=== PATIENT | male | born 1965 | race Caucasian/White ===

== ENCOUNTER 2021-01-06 18:05 | Observation (INO) ==
[2021-01-06] MEDS ORDERED: MoRPHine SULFATE 4 MG/ML 1 ML CARP\\VIAL IV STA ×2 (18:16→19:41)
[2021-01-06] MEDS ORDERED: ASPIRIN CHEW 324 MG PO STA (18:16)
[2021-01-06] MEDS ORDERED: SODIUM CHLORIDE 0.9% 500 ML IV STA (18:16)
--- NOTE | 2021-01-06 18:19 | Emergency Department Note ---
Impression & Plan Left-sided chest pain, HTN (hypertension) ED Provider Note Provider: Ricki Phipps MD DATE OF SERVICE: 01/06/2021 CHIEF COMPLAINT: Left-sided chest pain HISTORY OF PRESENT ILLNESS: Patient is a 55-year-old gentleman presenting today reporting significant left-sided chest pain with radiation to the left shoulder and left upper arm beginning yesterday. Significantly worsened this afternoon /evening and thus presents here for evaluation. States occasionally little bit short of breath. Patient reports a history of smoking. Patient denies any significant leg swelling. Patient denies any nausea vomiting or abdominal discomfort. Patient denies any right-sided pain. Patient has pain into his back. Patient states he does take a baby aspirin every day. States the pain worsened was at [employer] this afternoon and almost made him pass out and thus he presents here for further evaluation. Denies any pain down into the left hand. Patient is the pain is predominantly in the left shoulder now in the left upper chest. Patient states it does not hurt much to move or push on these areas. Patient denies a history of similar. REVIEW OF SYSTEMS: A total of 10 review of systems was obtained and negative except as stated above in the HPI. 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 NECK: Trachea midline. Supple. ENT: Mucous membranes pink and moist. LUNGS: Airway patent. No retractions. Breath sounds clear with good air entry bilaterally. HEART: Regular rate and rhythm. No chest wall tenderness ABDOMEN: Soft and non-tender, without guarding or rebound. SKIN: Acyanotic, warm, dry, without rashes EXTREMITIES: Without swelling, tenderness or deformity NEUROLOGICAL: No focal deficits. No aphasia. No facial droop or slurred speech. Ambulatory. EK bpm normal sinus rhythm. No PVC or PAC. No acute ST segment elevation or depression. aVL T wave inversion noted in comparison to previous from April 21 of this past year with slightly more prominent aVL T wave inversion today. CONTINUOUS CARDIAC MONITORING: was ordered and showed a heart rate of 70-90s bpm in normal sinus rhythm Patient's laboratory studies and imaging reviewed. Differential includes Cardiac ischemia, aortic dissection, pulmonary embolism, pneumothorax, pneumonia, pericarditis, myocarditis, esophageal rupture, GERD, cholecystitis, pancreatitis, musculoskeletal, as well as other pathologies. IMPRESSION/MEDICAL DECISION MAKING: Patient reports significant left-sided chest pain started yesterday worsening significantly today. Was little shortness of breath but not significantly hypoxic or tachycardic. Is hypertensive here and is a history of smoking. EKG completed does not appear significantly altered from previous. Given some additional aspirin for full dose today as well as some morphine and nitroglycerin to see if this helped the symptoms. Chest x-ray is obtained. Basic labs were obtained including troponin. Patient does not have stigmata of significant heart failure. There is no clinical evidence of DVT on exam of the lower limbs. Given his history of smoking age and hypertension discussed with him proceed with CT of the chest to exclude acute dissection. Patient had no significant improvement of his pain initially after aspirin, nitro, and morphine. Patient's later arrives and reports that the patient's 50-year-old brother recently of an [place]. She also reports that the patient distantly about 7 years ago or so had a myocardial infarction although did not receive stents. Again has been on aspirin. Patient does not have reproducible chest wall tenderness. Troponin here is undetectable. No evidence of acute hepatitis or pancreatitis based on laboratory studies. Bilirubin not elevated. CT the chest per radiology without evidence of acute PE or dissection. Did make the patient aware of the findings of 2 small pulmonary nodules in the left lung can be followed up by his primary doctor (both patient and his acknowledged these and will follow with his primary doctor regarding them). Patient's presentation does not seem consistent with acute myocarditis or pericarditis. Patient is chronically on hydrocodone at home. Patient's heart score given his age, history reported of myocardial infarction, and the significant left-sided pain nonreproducible on exam do believe this represents a moderate risk. Discussed with him and his at bedside these findings. Blood pressures also been elevated today. Again concerning history with his brothers young age of heart disease although he does have associated history of diabetes this patient does not. Discussed with the patient and /family at bedside recommendation for further observation here in the hospital given his pain symptoms. Patient was agreeable with the plan to stay for further care. Given additional dose of morphine for pain control. The hospitalist be contacted for further evaluation. Screening Covid test was ordered. DIAGNOSIS: Left-sided chest pain, hypertension DISPOSITION: Hospitalist will evaluate Patient was agreeable with this plan. Past Med/Surg History Social History Smoking Status: Current some day smoker Feels Safe at Home: Yes Allergies Allergies Allergy/AdvReac Type Severity Reaction Status Date / Time ketorolac [From Toradol] AdvReac Migraine Verified 04/21/20 21:26 Results & Data (ED) Vital Signs Vital Signs - 24 hr 01/06/21 18:07 01/06/21 18:30 01/06/21 19:15 Temperature 37.2 C Temperature Source Temporal Artery Scan Pulse Rate 88 94 H 84 Pulse Rate from SpO2 Sensor 95 H 85 Respiratory Rate 20 30 H 19 Respiratory Effort / Characteristics Non-Labored Spontaneous Respiratory Depth Normal Respiratory Pattern Regular Blood Pressure 164/100 H 157/91 H Blood Pressure Mean 121 113 Pulse Oximetry 97 92 94 Oxygen Delivery Method Room Air Sepsis Recent Fever Within 48 Hours No Sepsis New/Unexplained Change in Mental Status No Sepsis Action Taken by Nursing No Action Required Laboratory Data Result diagrams: 01/06/21 18:20 01/06/21 18:20 Lab Results 01/06/21 01/06/21 01/06/21 Range/Units 18:20 18:20 18:20 WBC 8.05 (4.8-10.8) K/uL RBC 4.38 L (4.7-6.1) M/uL Hgb 14.1 (14.0-18.0) g/dL POC Hgb (14.0-18.0) g/dl Hct 41.5 L (42-52) % POC Hct (42-52) % MCV 94.7 (80-100) fL MCH 32.2 (25-34) pg MCHC 34.0 (32-36) g/dL RDW Std Deviation 45.4 (36.4-46.3) fL RDW Coeff of Christy 13.1 (11.5-14.5) % Plt Count 311 (130-400) K/uL MPV 9.7 (7.4-10.4) fL Immature Gran % (Auto) 0.2 % Neut % (Auto) 59.6 % Lymph % (Auto) 31.8 % [place] % (Auto) 6.6 % Eos % (Auto) 1.6 % Baso % (Auto) 0.2 % Neut # (Auto) 4.79 (1.4-6.5) K/uL Lymph # (Auto) 2.56 (1.2-3.4) K/uL [place] # (Auto) 0.53 (0.11-0.59) K/uL Eos # (Auto) 0.13 (0-0.5) K/uL Baso # (Auto) 0.02 (0-0.2) K/uL Immature Gran # (Auto) 0.02 (0.00-0.02) K/uL PT 9.9 (9.0-12.0) Seconds INR 1.0 (0.9-1.1) APTT 26.8 (21.0-31.0) Seconds PTT Ratio 1.0 POC Sodium (135-144) mmol/L Sodium 139 (136-145) mmol/L POC Potassium (3.3-5.0) mmol/L Potassium 4.0 (3.5-5.1) mmol/L POC Chloride (101-112) mmol/L Chloride 108 H (98-107) mmol/L Carbon Dioxide 27 (21-32) mmol/L POC Total CO2 (24-31) mmol/L Anion Gap 5.0 (3-11) POC Anion Gap (16-25) mmol/L POC BUN (7-18) mg/dl BUN 19 H (7-18) mg/dl Creatinine 0.96 (0.6-1.4) mg/dl POC Creatinine (0.6-1.3) mg/dl Est Cr Clr Drug Dosing 6.1 ml/min Est GFR ( Amer) 102.7 ml/min Est GFR (Non-Af Amer) 88.6 ml/min BUN/Creatinine Ratio 20.0 (10-20) Glucose 139 H (70-99) mg/dl POC Glucose (other) (70-99) mg/dl Calcium 9.1 (8.5-10.1) mg/dl POC Ioniz Calcium Genny (1.12-1.32) mmol/l Total Bilirubin 0.3 (0.2-1) mg/dl AST 18 (15-37) U/L ALT 29 (12-78) U/L Alkaline Phosphatase 93 (45-117) U/L Troponin I < 0.015 (0-0.045) ng/ml Total Protein 7.8 (6.4-8.2) gm/dl Albumin 3.9 (3.4-5.0) gm/dl Globulin 3.9 (2.5-4.0) gm/dl Albumin/Globulin Ratio 1.0 (0.9-2) Lipase 99 (73-393) U/L 01/06/21 Range/Units 18:26 WBC (4.8-10.8) K/uL RBC (4.7-6.1) M/uL Hgb (14.0-18.0) g/dL POC Hgb 14.3 (14.0-18.0) g/dl Hct (42-52) % POC Hct 42 (42-52) % MCV (80-100) fL MCH (25-34) pg MCHC (32-36) g/dL RDW Std Deviation (36.4-46.3) fL RDW Coeff of Christy (11.5-14.5) % Plt Count (130-400) K/uL MPV (7.4-10.4) fL Immature Gran % (Auto) % Neut % (Auto) % Lymph % (Auto) % [place] % (Auto) % Eos % (Auto) % Baso % (Auto) % Neut # (Auto) (1.4-6.5) K/uL Lymph # (Auto) (1.2-3.4) K/uL [place] # (Auto) (0.11-0.59) K/uL Eos # (Auto) (0-0.5) K/uL Baso # (Auto) (0-0.2) K/uL Immature Gran # (Auto) (0.00-0.02) K/uL PT (9.0-12.0) Seconds INR (0.9-1.1) APTT (21.0-31.0) Seconds PTT Ratio POC Sodium 141 (135-144) mmol/L Sodium (136-145) mmol/L POC Potassium 4.2 (3.3-5.0) mmol/L Potassium (3.5-5.1) mmol/L POC Chloride 104 (101-112) mmol/L Chloride (98-107) mmol/L Carbon Dioxide (21-32) mmol/L POC Total CO2 26 (24-31) mmol/L Anion Gap (3-11) POC Anion Gap 16.0 (16-25) mmol/L POC BUN 22 H (7-18) mg/dl BUN (7-18) mg/dl Creatinine (0.6-1.4) mg/dl POC Creatinine 0.9 (0.6-1.3) mg/dl Est Cr Clr Drug Dosing ml/min Est GFR ( Amer) ml/min Est GFR (Non-Af Amer) ml/min BUN/Creatinine Ratio (10-20) Glucose (70-99) mg/dl POC Glucose (other) 143 H (70-99) mg/dl Calcium (8.5-10.1) mg/dl POC Ioniz Calcium Genny 1.20 (1.12-1.32) mmol/l Total Bilirubin (0.2-1) mg/dl AST (15-37) U/L ALT (12-78) U/L Alkaline Phosphatase (45-117) U/L Troponin I (0-0.045) ng/ml Total Protein (6.4-8.2) gm/dl Albumin (3.4-5.0) gm/dl Globulin (2.5-4.0) gm/dl Albumin/Globulin Ratio (0.9-2) Lipase (73-393) U/L Administered Medications Nitroglycerin (Nitroglycerin Sl 0.4 Mg/Tab Tab) 0.4 mg SL UD PRN PRN Reason: Chest Pain Stop: 02/05/21 18:15 Last Admin: 01/06/21 18:33 Dose: 0.4 mg Documented by: [id number] Discontinued Medications Aspirin (Aspirin Chew 324 Mg) 243 mg PO NOW STA Stop: 01/06/21 18:17 Last Admin: 01/06/21 18:32 Dose: 243 mg Documented by: [id number] Sodium Chloride (Nss) 500 mls @ 999 mls/hr IV .Q31M STA Stop: 01/06/21 18:46 Last Infusion: 01/06/21 19:17 Dose: 0 mls/hr Documented by: [id number] Admin: 01/06/21 18:32 Dose: 999 mls/hr Documented by: [id number] Ioversol (Optiray 320 125ml) 120 ml IV ONCE ONE Stop: 01/06/21 19:05 Last Admin: 01/06/21 19:04 Dose: 120 ml Documented by: [id number] Morphine Sulfate (Morphine Sulfate 4 Mg/Ml 1 Ml Carp\Vial) 4 mg IV NOW STA Stop: 01/06/21 18:17 Last Admin: 01/06/21 18:32 Dose: 4 mg Documented by: [id number] Imaging Data Radiologist's Impression: Chest X-Ray 01/06/21 18:16 SINGLE VIEW CHEST CLINICAL HISTORY: Atypical chest pain. FINDINGS: An AP, portable, upright chest radiograph is compared to study dated 04/21/2020. The heart is top normal for projection. The mediastinal contour is within normal limits. Atelectasis is noted at the lung bases. The lungs and pleural spaces are otherwise clear. No pneumothorax is seen. The bony thorax is grossly intact. IMPRESSION: No active disease in the chest. ACT 112: Negative or not required by law. Electronically signed by: Levi Marley M.D. 01/06/2021 6:38 PM Chest CTA 01/06/21 18:46 CT ANGIOGRAM OF THE CHEST COMBO CLINICAL HISTORY: Atypical chest pain. Hypertension. Smoking history. COMPARISON STUDY: Chest x-ray dated 01/06/2021. TECHNIQUE: Before and following the IV administration of 120 cc of Optiray 320, CT angiogram of the chest was performed from the thoracic inlet to the upper abdomen utilizing the dissection protocol. Images are reviewed in the axial, sagittal, and coronal planes. 3-D MIPS images are created and assessed. IV con trast was administered without complication. A dose lowering technique was utilized adhering to the principles of ALARA. CT DOSE: 2310.78 mGy.cm FINDINGS: Thyroid: Imaged portions of the thyroid gland are normal in size and attenuation. Thoracic aorta: No intramural hematoma is identified on the unenhanced series. The thoracic aorta is normal in caliber and demonstrates standard 3-vessel arch anatomy. No dissection is seen. The arch vessels are widely patent. Pulmonary vasculature: The pulmonary trunk is normal in caliber. There are no filling defects identified within the main, lobar, or segmental pulmonary arteries to suggest pulmonary embolus. Heart: The heart is normal in size and without pericardial effusion. There are coronary artery calcifications. Lungs and pleural spaces: Minimal emphysematous change is seen at the apices. There is no airspace consolidation typical for pneumonia or pleural effusion. Scarring/atelectasis is seen at the lung bases. The trachea and central airways are clear. A 4 mm pleural-based nodule in the left lower lobe as seen on image #149. A 3 mm left upper lobe nodule seen on image #146. Mediastinum: There is no mediastinal lymphadenopathy. Jayla: Clear. Axillae: There is no axillary lymphadenopathy. Upper abdomen: The liver is enlarged measuring over 20 cm in length. The liver demonstrates diffusely diminished attenuation consistent with hepatic steatosis. Fatty sparing is noted adjacent to gallbladder fossa. Diverticula are noted in the partially imaged left colon. Skeletal structures: No lytic or blastic bony lesions are seen. IMPRESSION: 1. Unremarkable CT angiogram of the thoracic aorta. 2. There is no evidence of pulmonary embolus in the main, lobar, or segmental pulmonary arteries. 3. There is no airspace consolidation or pleural effusion. 4. There are 2 indeterminant pulmonary nodules in the left lung measuring up to 4 mm. If warranted disease can be followed as per the Fleischner criteria. See below. 5. Hepatomegaly and hepatic steatosis. Please refer to below summary of Fleischner criteria recommendations for follow- up of incidental CT nodules (Jaxon Alonso, Guidelines for management of small pulmonary nodules detected on CT scans: A statement from the Fleischner Society , Radiology 237: [phone].) SOLID NODULES Solitary nodule size: <6 mm * low risk patients: no follow-up needed * high risk patients: optional CT at 12 months Solitary nodule size: 6-8 mm * low risk patients: follow-up at 6-12 months, then consider further follow-up at 18-24 months * high risk patients: initial follow-up CT at 6-12 months and then at 18-24 months if no change Solitary nodule size: >8 mm * either low or high risk patients - consider follow-up CT at 3 months, and/or CT-PET, and/or biopsy Multiple nodules size: <6 mm * low risk patients: no routine follow-up * high risk patients: optional CT at 12 months Multiple nodules size: 6-8 mm * low risk patients: follow-up at 3-6 months, then consider further follow-up at 18-24 months * high risk patients: follow-up at 3-6 months, then at 18-24 months if no change Multiple nodules size: >8 mm * low risk patients: follow-up at 3-6 months, then consider further follow-up at 18-24 months * high risk patients: follow-up at 3-6 months, then at 18-24 months if no change Note: newly detected indeterminate nodule in persons 35 years of age or older. * low risk patients: minimal or absent history of smoking and/or other known risk factors * high risk patients: history of smoking or of other known risk factors (e.g. first degree relative with lung cancer, or exposure to asbestos, radon, uranium) * if a nodule up to 8 mm is partly solid or is ground glass further follow-up is required after 24 months to exclude possible slow growing adenocarcinoma (DONNA) SUBSOLID NODULES Solitary pure ground-glass nodule * nodule size <6 mm - no CT follow-up required * nodule size >=6 mm - follow-up CT at 6-12 months, then every 2 years until 5 years Solitary part-solid nodule * nodule size <6 mm - no CT follow-up required * nodule size >=6 mm - follow-up CT at 3-6 months. If unchanged, and solid component remains <6 mm, then annual follow-up for 5 years Multiple subsolid nodules * nodule size <6 mm - follow-up CT at 3-6 months, consider further follow-up at 2 and 4 years if stable * nodule size >=6 mm - follow-up CT at 3-6 months, subsequent management based on the most suspicious nodule(s) ACT 112: Positive. There are findings on this exam that require communication between the performing entity and the patient following Patient Test Result Information Act ([place] Act 112) guidelines. Electronically signed by: Levi Marley M.D. 01/06/2021 7:24 PM Discharge Plan Visit Data Chief Complaint: Chest Pain Stated Complaint: EXTREME CHEST PAIN TO SHOULDERS Discharge Problem: Left-sided chest pain, HTN (hypertension) Patient Disposition: Being Evaluated by Hospitalist Forms Stand Alone Forms: [facility] Referrals Referrals: Godfrey Jaimes MD [Primary Care Provider] - Discharge Problem: HTN (hypertension) Qualifiers: Hypertension type: unspecified Qualified Code(s): I10 - Essential (primary) hypertension
[2021-01-06] MEDS: NITROGLYCERIN SL 0.4 MG/TAB TAB SL PRN ×4 (18:33→23:39)
[2021-01-06 18:39] LABS: iSTAT Creatinine 0.9 mg/dl (0.6-1.3); iSTAT Hemoglobin 14.3 g/dl (14.0-18.0); iSTAT Ionized Calcium 1.2 mmol/l (1.12-1.32); iSTAT Potassium 4.2 mmol/L (3.3-5.0)
--- NOTE | 2021-01-06 18:39 | XRay Report ---
SINGLE VIEW CHEST CLINICAL HISTORY: Atypical chest pain. FINDINGS: An AP, portable, upright chest radiograph is compared to study dated 04/21/2020. The heart is top normal for projection. The mediastinal contour is within normal limits. Atelectasis is noted a t the lung bases. The lungs and pleural spaces are otherwise clear. No pneumothorax is seen. The bony thorax is grossly intact. IMPRESSION: No active disease in the chest. ACT 112: Negative or not required by law. Electronically signed by: Levi Marley M.D. 01/06/2021 6:38 PM
[2021-01-06 18:42] LABS: Basophils # (auto) 0.02 K/uL (0-0.2); Basophils % (auto) 0.2 %; Eosinophils # (auto) 0.13 K/uL (0-0.5); Eosinophils % (auto) 1.6 %; Hematocrit (blood only) 41.5 % (42-52); Hemoglobin 14.1 g/dL (14.0-18.0); Immature Granulocytes # (auto) 0.02 K/uL (0.00-0.02); Immature Granulocytes % (auto) 0.2 %; Lymphocytes # (auto) 2.56 K/uL (1.2-3.4); Lymphocytes % (auto) 31.8 %; Mean Corpuscular Hemoglobin 32.2 pg (25-34); Mean Corpuscular Volume 94.7 fL (80-100); Mean Platelet Volume 9.7 fL (7.4-10.4); Monocytes # (auto) 0.53 K/uL (0.11-0.59); Monocytes % (auto) 6.6 %; Neutrophils # (auto) 4.79 K/uL (1.4-6.5); Neutrophils % (auto) 59.6 %; Platelet Count 311 K/uL (130-400); RDW Coefficient of Variation 13.1 % (11.5-14.5); RDW Standard Deviation 45.4 fL (36.4-46.3); Red Blood Count 4.38 M/uL (4.7-6.1); White Blood Count 8.05 K/uL (4.8-10.8)
[2021-01-06 18:58] LABS: Partial Thromboplastin Time 26.8 Seconds (21.0-31.0); Prothrombin Time 9.9 Seconds (9.0-12.0)
[2021-01-06] MEDS ORDERED: OPTIRAY 320 125ml IV ONE (19:04)
[2021-01-06 19:08] LABS: Alanine Aminotransferase 29 U/L (12-78); Albumin Level 3.9 gm/dl (3.4-5.0); Aspartate Aminotransferase 18 U/L (15-37); Blood Urea Nitrogen 19 mg/dl (7-18); Calcium 9.1 mg/dl (8.5-10.1); Carbon Dioxide 27 mmol/L (21-32); Chloride 108 mmol/L (98-107); Creatinine Clr Calc Pharmacy 6.1 ml/min; Est GFR (African American) 102.7 ml/min; Est GFR (Non-African American) 88.6 ml/min; Glucose 139 mg/dl (70-99); Lipase 99 U/L (73-393); Sodium 139 mmol/L (136-145)
[2021-01-06 19:13] LABS: Alkaline Phosphatase 93 U/L (45-117); Bilirubin,Total 0.3 mg/dl (0.2-1); Globulin 3.9 gm/dl (2.5-4.0); Total Protein 7.8 gm/dl (6.4-8.2); Troponin I < 0.015 ng/ml (0-0.045)
--- NOTE | 2021-01-06 19:25 | CT Scan Report ---
CT ANGIOGRAM OF THE CHEST COMBO CLINICAL HISTORY: Atypical chest pain. Hypertension. Smoking history. COMPARISON STUDY: Chest x-ray dated 01/06/2021. TECHNIQUE: Before and following the IV administration of 120 cc of Optiray 320, CT angiogram of the c hest was performed from the thoracic inlet to the upper abdomen utilizing the dissection protocol. Im ages are reviewed in the axial, sagittal, and coronal planes. 3-D MIPS images are created and assesse d. IV contrast was administered without complication. A dose lowering technique was utilized adherin g to the principles of ALARA. CT DOSE: 2310.78 mGy.cm FINDINGS: Thyroid: Imaged portions of the thyroid gland are normal in size and attenuation. Thoracic aorta: No intramural hematoma is identified on the unenhanced series. The thoracic aorta is normal in caliber and demonstrates standard 3-vessel arch anatomy. No dissection is seen. The arch ve ssels are widely patent. Pulmonary vasculature: The pulmonary trunk is normal in caliber. There are no filling defects identif ied within the main, lobar, or segmental pulmonary arteries to suggest pulmonary embolus. Heart: The heart is normal in size and without pericardial effusion. There are coronary artery calcif ications. Lungs and pleural spaces: Minimal emphysematous change is seen at the apices. There is no airspace co nsolidation typical for pneumonia or pleural effusion. Scarring/atelectasis is seen at the lung bases . The trachea and central airways are clear. A 4 mm pleural-based nodule in the left lower lobe as se en on image #149. A 3 mm left upper lobe nodule seen on image #146. Mediastinum: There is no mediastinal lymphadenopathy. Jayla: Clear. Axillae: There is no axillary lymphadenopathy. Upper abdomen: The liver is enlarged measuring over 20 cm in length. The liver demonstrates diffusely diminished attenuation consistent with hepatic steatosis. Fatty sparing is noted adjacent to gallbla dder fossa. Diverticula are noted in the partially imaged left colon. Skeletal structures: No lytic or blastic bony lesions are seen. IMPRESSION: 1. Unremarkable CT angiogram of the thoracic aorta. 2. There is no evidence of pulmonary embolus in the main, lobar, or segmental pulmonary arteries. 3. There is no airspace consolidation or pleural effusion. 4. There are 2 indeterminant pulmonary nodules in the left lung measuring up to 4 mm. If warranted di sease can be followed as per the Fleischner criteria. See below. 5. Hepatomegaly and hepatic steatosis. Please refer to below summary of Fleischner criteria recommendations for follow-up of incidental CT n odules (Jaxon Alonso, Guidelines for management of small pulmonary nodules detected on CT scans: A ana ventura from the Fleischner Society, Radiology 237: [phone].) SOLID NODULES Solitary nodule size: <6 mm * low risk patients: no follow-up needed * high risk patients: optional CT at 12 months Solitary nodule size: 6-8 mm * low risk patients: follow-up at 6-12 months, then consider further follow-up at 18-24 months * high risk patients: initial follow-up CT at 6-12 months and then at 18-24 months if no change Solitary nodule size: >8 mm * either low or high risk patients - consider follow-up CT at 3 months, and/or CT-PET, and/or biopsy Multiple nodules size: <6 mm * low risk patients: no routine follow-up * high risk patients: optional CT at 12 months Multiple nodules size: 6-8 mm * low risk patients: follow-up at 3-6 months, then consider further follow-up at 18-24 months * high risk patients: follow-up at 3-6 months, then at 18-24 months if no change Multiple nodules size: >8 mm * low risk patients: follow-up at 3-6 months, then consider further follow-up at 18-24 months * high risk patients: follow-up at 3-6 months, then at 18-24 months if no change Note: newly detected indeterminate nodule in persons 35 years of age or older. * low risk patients: minimal or absent history of smoking and/or other known risk factors * high risk patients: history of smoking or of other known risk factors (e.g. first degree relative with lung cancer, or exposure to asbestos, radon, uranium) * if a nodule up to 8 mm is partly solid or is ground glass further follow-up is required after 24 m onths to exclude possible slow growing adenocarcinoma (DONNA) SUBSOLID NODULES Solitary pure ground-glass nodule * nodule size <6 mm - no CT follow-up required * nodule size >=6 mm - follow-up CT at 6-12 months, then every 2 years until 5 years Solitary part-solid nodule * nodule size <6 mm - no CT follow-up required * nodule size >=6 mm - follow-up CT at 3-6 months. If unchanged, and solid component remains <6 mm, then annual follow-up for 5 years Multiple subsolid nodules * nodule size <6 mm - follow-up CT at 3-6 months, consider further follow-up at 2 and 4 years if sta ble * nodule size >=6 mm - follow-up CT at 3-6 months, subsequent management based on the most suspiciou s nodule(s) ACT 112: Positive. There are findings on this exam that require communication between the performing entity and the patient following Patient Test Result Information Act ([place] Act 112) guidelines. Electronically signed by: Levi Marley M.D. 01/06/2021 7:24 PM
[2021-01-06 20:11] LABS: Magnesium 1.8 mg/dl (1.8-2.4)
[2021-01-06] MEDS ORDERED: HYDROmorphone INJ 1 MG/ML SYRINGE IV STA (20:47)
--- NOTE | 2021-01-06 20:48 | History & Physical Report ---
Date of Service January 06, 2021 Assessment & Plan (1) Left-sided chest pain: Plan: Somewhat atypical given negative response to nitroglycerin ? Anxiety contributory Rule out ACS given patient's risk factors for ischemic heart disease hypertension, slight elevated hyperlipidemia as per records, currently not on statin Rx BPH, distressing symptoms from nocturesis but patient unwilling to take medication from PCP secondary to medication side effects prediabetes, hemoglobin A1c 5.8 in October 2020 Incidental finding of pulmonary nodules on CT intermittent tobacco abuse OBS PCU Analgesia, anxiolytic Aspirin for CAD prevention until ACS ruled out Follow troponin TTE RE chest pain Cardiology consult in a.m. RE chest pain, risk factors for ischemic heart disease N.p.o. after midnight in anticipation of procedure in a.m. Outpatient follow-up imaging for pulmonary nodules following Fleischner criteria Nicotine patch as needed DVT prophylaxis. Lovenox subcu Full code Patient's requesting update providers. Ms. Doretha Gilliam, contact #[phone]. Text document was generated using [employer] voice recognition software. It may contain grammatical or spelling errors. Kindly contact undersigned for clarification of any documentation item in question. History of Present Illness Chief Complaint: Chest pain Primary Care Provider: Godfrey Jaimes MD History obtained from patient, family, and records. Medical history significant for hypertension, hyperlipidemia, PAM as per records, prediabetes, BPH, intermittent tobacco abuse. Patient was at a local store shopping with his family yesterday when he experienced achy left-sided chest pain with radiation to the left shoulder with some shortness of breath. No cough symptoms. No rashes. No recollection of recent trauma. Patient did not sleep well the other night. 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 No relief with aspirin intake. Persistent symptoms prompted ER consultation this afternoon. Chest pain not relieved by nitroglycerin administration at the ER. 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 Allergies Allergy/AdvReac Type Severity Reaction Status Date / Time ketorolac [From Toradol] AdvReac Migraine Verified 01/06/21 19:58 Home Medications Medication Instructions Recorded Confirmed Type aspirin 81 mg tablet,delayed 81 mg PO DAILY 01/06/21 01/06/21 History release hydrocodone 7.5 mg-ibuprofen 200 1 tab PO Q6 PRN 01/06/21 01/06/21 History mg tablet losartan 100 mg tablet 100 mg PO DAILY 01/06/21 01/06/21 History metoprolol succinate 50 mg 50 mg PO QPM 01/06/21 01/06/21 History tablet,extended release 24 hr metoprolol succinate 50 mg 100 mg PO QAM 01/06/21 01/06/21 History tablet,extended release 24 hr Past Med/Surg History Social History Smoking Status: Current some day smoker Cigarettes Per Day: 4 per day 2 days a week.; Do You Dip or Chew Tobacco: No; Hx Alcohol Use: No Hx Substance Use: No Preferred Language: Macedonian Communication Ability: Effective Caustic Room Attendant Required: No Beliefs That Will Affect Care: Confucianist Confucianist Beliefs: Congregational. Current Living Situation: Spouse and Family Current Living Situation Comment: 2 children as well. Other Information That Helps Us Care for You: No Feels Safe at Home: Yes Safety Concerns: Feels Safe At This Time Assistive Devices: None Assistive Devices Comment: Occasional use of hindged knee brace on R. Review of Systems Review of Systems: As per HPI, all 10 systems reviewed, all other ROS negative Physical Exam Physical Exam: GENERAL: uncomfortable, anxious, morbidly obese, no respiratory distress SKIN: Normal color, warm HEENT: [place] palpebral conjunctivae, no ptosis, moist buccal mucosa NECK : Supple, short neck, no tenderness CHEST : CTA, no tenderness HEART : RRR, no obvious murmurs ABDOMEN: Some distention, nontender EXTREMITIES : No LE swelling/tenderness, no other conspicuous deformities noted NEUROLOGIC : Coherent, no facial asymmetry, no other gross focality Results & Data Results & Data ([facility]) Vital Signs (Past 12 Hours) Vital Signs Temp Pulse Resp BP Pulse Ox 01/06/21 19:15 84 19 94 01/06/21 18:30 94 H 30 H 157/91 H 92 01/06/21 18:07 37.2 C 88 20 164/100 H 97 Laboratory Results Laboratory Results WBC 8.05 K/uL (4.8-10.8) 01/06/21 18:20 RBC 4.38 M/uL (4.7-6.1) L 01/06/21 18:20 Hgb 14.1 g/dL (14.0-18.0) 01/06/21 18:20 POC Hgb 14.3 g/dl (14.0-18.0) 01/06/21 18:26 Hct 41.5 % (42-52) L 01/06/21 18:20 POC Hct 42 % (42-52) 01/06/21 18:26 MCV 94.7 fL (80-100) 01/06/21 18:20 MCH 32.2 pg (25-34) 01/06/21 18:20 MCHC 34.0 g/dL (32-36) 01/06/21 18:20 RDW Std Deviation 45.4 fL (36.4-46.3) 01/06/21 18:20 RDW Coeff of Christy 13.1 % (11.5-14.5) 01/06/21 18:20 Plt Count 311 K/uL (130-400) 01/06/21 18:20 MPV 9.7 fL (7.4-10.4) 01/06/21 18:20 Immature Gran % (Auto) 0.2 % 01/06/21 18:20 Neut % (Auto) 59.6 % 01/06/21 18:20 Lymph % (Auto) 31.8 % 01/06/21 18:20 [place] % (Auto) 6.6 % 01/06/21 18:20 Eos % (Auto) 1.6 % 01/06/21 18:20 Baso % (Auto) 0.2 % 01/06/21 18:20 Neut # (Auto) 4.79 K/uL (1.4-6.5) 01/06/21 18:20 Lymph # (Auto) 2.56 K/uL (1.2-3.4) 01/06/21 18:20 [place] # (Auto) 0.53 K/uL (0.11-0.59) 01/06/21 18:20 Eos # (Auto) 0.13 K/uL (0-0.5) 01/06/21 18:20 Baso # (Auto) 0.02 K/uL (0-0.2) 01/06/21 18:20 Immature Gran # (Auto) 0.02 K/uL (0.00-0.02) 01/06/21 18:20 PT 9.9 Seconds (9.0-12.0) 01/06/21 18:20 INR 1.0 (0.9-1.1) 01/06/21 18:20 APTT 26.8 Seconds (21.0-31.0) 01/06/21 18:20 PTT Ratio 1.0 01/06/21 18:20 POC Sodium 141 mmol/L (135-144) 01/06/21 18:26 Sodium 139 mmol/L (136-145) 01/06/21 18:20 POC Potassium 4.2 mmol/L (3.3-5.0) 01/06/21 18:26 Potassium 4.0 mmol/L (3.5-5.1) 01/06/21 18:20 POC Chloride 104 mmol/L (101-112) 01/06/21 18:26 Chloride 108 mmol/L (98-107) H 01/06/21 18:20 Carbon Dioxide 27 mmol/L (21-32) 01/06/21 18:20 POC Total CO2 26 mmol/L (24-31) 01/06/21 18:26 Anion Gap 5.0 (3-11) 01/06/21 18:20 POC Anion Gap 16.0 mmol/L (16-25) 01/06/21 18:26 POC BUN 22 mg/dl (7-18) H 01/06/21 18:26 BUN 19 mg/dl (7-18) H 01/06/21 18:20 Creatinine 0.96 mg/dl (0.6-1.4) 01/06/21 18:20 POC Creatinine 0.9 mg/dl (0.6-1.3) 01/06/21 18:26 Est Cr Clr Drug Dosing 6.1 ml/min 01/06/21 18:20 Est GFR ( Amer) 102.7 ml/min 01/06/21 18:20 Est GFR (Non-Af Amer) 88.6 ml/min 01/06/21 18:20 BUN/Creatinine Ratio 20.0 (10-20) 01/06/21 18:20 Glucose 139 mg/dl (70-99) H 01/06/21 18:20 POC Glucose (other) 143 mg/dl (70-99) H 01/06/21 18:26 Calcium 9.1 mg/dl (8.5-10.1) 01/06/21 18:20 POC Ioniz Calcium [place]enny 1.20 mmol/l (1.12-1.32) 01/06/21 18:26 Magnesium 1.8 mg/dl (1.8-2.4) 01/06/21 18:20 Total Bilirubin 0.3 mg/dl (0.2-1) 01/06/21 18:20 AST 18 U/L (15-37) 01/06/21 18:20 ALT 29 U/L (12-78) 01/06/21 18:20 Alkaline Phosphatase 93 U/L (45-117) 01/06/21 18:20 Troponin I < 0.015 ng/ml (0-0.045) 01/06/21 18:20 Total Protein 7.8 gm/dl (6.4-8.2) 01/06/21 18:20 Albumin 3.9 gm/dl (3.4-5.0) 01/06/21 18:20 Globulin 3.9 gm/dl (2.5-4.0) 01/06/21 18:20 Albumin/Globulin Ratio 1.0 (0.9-2) 01/06/21 18:20 Lipase 99 U/L (73-393) 01/06/21 18:20 TSH 1.600 uIu/ml (0.300-4.500) 01/06/21 18:20 COVID-19 Eval Order Covid19 at [facility] 01/06/21 19:57 Impressions Chest X-Ray 01/06/21 18:16 SINGLE VIEW CHEST CLINICAL HISTORY: Atypical chest pain. FINDINGS: An AP, portable, upright chest radiograph is compared to study dated 04/21/2020. The heart is top normal for projection. The mediastinal contour is within normal limits. Atelectasis is noted at the lung bases. The lungs and pleural spaces are otherwise clear. No pneumothorax is seen. The bony thorax is grossly intact. IMPRESSION: No active disease in the chest. ACT 112: Negative or not required by law. Electronically signed by: Levi Marley M.D. 01/06/2021 6:38 PM Chest CTA 01/06/21 18:46 CT ANGIOGRAM OF THE CHEST COMBO CLINICAL HISTORY: Atypical chest pain. Hypertension. Smoking history. COMPARISON STUDY: Chest x-ray dated 01/06/2021. TECHNIQUE: Before and following the IV administration of 120 cc of Optiray 320, CT angiogram of the chest was performed from the thoracic inlet to the upper abdomen utilizing the dissection protocol. Images are reviewed in the axial, sagittal, and coronal planes. 3-D MIPS images are created and assessed. IV co ntrast was administered without complication. A dose lowering technique was utilized adhering to the principles of ALARA. CT DOSE: 2310.78 mGy.cm FINDINGS: Thyroid: Imaged portions of the thyroid gland are normal in size and attenuation. Thoracic aorta: No intramural hematoma is identified on the unenhanced series. The thoracic aorta is normal in caliber and demonstrates standard 3-vessel arch anatomy. No dissection is seen. The arch vessels are widely patent. Pulmonary vasculature: The pulmonary trunk is normal in caliber. There are no filling defects identified within the main, lobar, or segmental pulmonary arteries to suggest pulmonary embolus. Heart: The heart is normal in size and without pericardial effusion. There are coronary artery calcifications. Lungs and pleural spaces: Minimal emphysematous change is seen at the apices. There is no airspace consolidation typical for pneumonia or pleural effusion. Scarring/atelectasis is seen at the lung bases. The trachea and central airways are clear. A 4 mm pleural-based nodule in the left lower lobe as seen on image #149. A 3 mm left upper lobe nodule seen on image #146. Mediastinum: There is no mediastinal lymphadenopathy. [place]: Clear. Axillae: There is no axillary lymphadenopathy. Upper abdomen: The liver is enlarged measuring over 20 cm in length. The liver demonstrates diffusely diminished attenuation consistent with hepatic steatosis. Fatty sparing is noted adjacent to gallbladder fossa. Diverticula are noted in the partially imaged left colon. Skeletal structures: No lytic or blastic bony lesions are seen. IMPRESSION: 1. Unremarkable CT angiogram of the thoracic aorta. 2. There is no evidence of pulmonary embolus in the main, lobar, or segmental pulmonary arteries. 3. There is no airspace consolidation or pleural effusion. 4. There are 2 indeterminant pulmonary nodules in the left lung measuring up to 4 mm. If warranted disease can be followed as per the Fleischner criteria. See below. 5. Hepatomegaly and hepatic steatosis. Please refer to below summary of Fleischner criteria recommendations for follow- up of incidental CT nodules (Jaxon Alonso, Guidelines for management of small pulmonary nodules detected on CT scans: A statement from the Fleischner Society, Radiology 237: [phone].) SOLID NODULES Solitary nodule size: <6 mm * low risk patients: no follow-up needed * high risk patients: optional CT at 12 months Solitary nodule size: 6-8 mm * low risk patients: follow-up at 6-12 months, then consider further follow-up at 18-24 months * high risk patients: initial follow-up CT at 6-12 months and then at 18-24 months if no change Solitary nodule size: >8 mm * either low or high risk patients - consider follow-up CT at 3 months, and/or CT-PET, and/or biopsy Multiple nodules size: <6 mm * low risk patients: no routine follow-up * high risk patients: optional CT at 12 months Multiple nodules size: 6-8 mm * low risk patients: follow-up at 3-6 months, then consider further follow-up at 18-24 months * high risk patients: follow-up at 3-6 months, then at 18-24 months if no change Multiple nodules size: >8 mm * low risk patients: follow-up at 3-6 months, then consider further follow-up at 18-24 months * high risk patients: follow-up at 3-6 months, then at 18-24 months if no change Note: newly detected indeterminate nodule in persons 35 years of age or older. * low risk patients: minimal or absent history of smoking and/or other known risk factors * high risk patients: history of smoking or of other known risk factors (e.g. first degree relative with lung cancer, or exposure to asbestos, radon, uranium) * if a nodule up to 8 mm is partly solid or is ground glass further follow-up is required after 24 months to exclude possible slow growing adenocarcinoma ([place]) SUBSOLID NODULES Solitary pure ground-glass nodule * nodule size <6 mm - no CT follow-up required * nodule size >=6 mm - follow-up CT at 6-12 months, then every 2 years until 5 years Solitary part-solid nodule * nodule size <6 mm - no CT follow-up required * nodule size >=6 mm - follow-up CT at 3-6 months. If unchanged, and solid component remains <6 mm, then annual follow-up for 5 years Multiple subsolid nodules * nodule size <6 mm - follow-up CT at 3-6 months, consider further follow-up at 2 and 4 years if stable * nodule size >=6 mm - follow-up CT at 3-6 months, subsequent management based on the most suspicious nodule(s) ACT 112: Positive. There are findings on this exam that require communication between the performing entity and the patient following Patient Test Result Information Act ([place] Act 112) guidelines. Electronically signed by: Levi Marley M.D. 01/06/2021 7:24 PM Diagnostic Findings EKG as per my interpretation rate 85, NSR, normal axis, T wave abnormalities lateral leads
[2021-01-06] MEDS ORDERED: METOPROLOL SUCC 50MG EXT REL TAB PO STA (21:04)
[2021-01-06] MEDS ORDERED: ACETAMINOPHEN 325 MG TAB PO PRN (21:10)
[2021-01-06] MEDS ORDERED: HYDROmorphone INJ 0.5 MG/0.5 ML SYR IV PRN (21:10)
[2021-01-06] MEDS ORDERED: LORazepam 0.5 MG/1 ML VIAL IV PRN (21:10)
[2021-01-06] MEDS ORDERED: PROMETHAZINE HCL 12.5 MG in SODIUM CHLORIDE 0.9% 50 ML IV PRN (21:10)
[2021-01-06] MEDS ORDERED: HYDROmorphone INJ 1 MG/ML SYRINGE IV PRN (22:24)
[2021-01-07] MEDS ORDERED: SODIUM CHLORIDE 0.9% 1000ML 1,000 ML IV SCH
[2021-01-07] MEDS ORDERED: LABETALOL HCL IV 5 MG/ML 20ML IV STA (02:48)
[2021-01-07] MEDS: HYDROmorphone INJ 1 MG/ML SYRINGE IV PRN ×7 (02:49→23:50)
[2021-01-07 03:45] LABS: Appearance Urine Clear (Clear); Bacteria Urine Automated Negative (Negative); Bilirubin Urine Negative (Negative); Blood Urine Trace (Negative); Cast Urine Automated 0 /lpf (0-5); Color Urine Yellow; Epithelial Cell Urine Auto 0-5 /lpf (0-5); Glucose Urine UA Negative (Negative); Ketones Urine Negative (Negative); Leukocyte Esterase Urine Negative (Negative); Nitrite Urine Negative (Negative); Protein Urine Negative (Negative); RBC Urine Automated 0-4 /hpf (0-4); Specific Gravity Urine > 1.045 (1.000-1.030); Urobilinogen Urine Negative (Negative); pH Urine 5.5 (4.5-7.5)
[2021-01-07] MEDS: LOSARTAN POTASSIUM 50 MG TAB PO SCH (03:51)
[2021-01-07 04:01] LABS: Amphetamines+Metham, Urine Neg (Neg); Barbiturates, Urine Neg (Neg); Benzodiazepine, Urine Pos (Neg); Cocaine, Urine Neg (Neg); MDMA (Ecstacy), Urine Neg (Neg); Methadone, Urine Neg (Neg); Opiate, Urine Pos (Neg); Phencyclidine, Urine Neg (Neg)
[2021-01-07 05:39] LABS: Basophils # (auto) 0.05 K/uL (0-0.2); Basophils % (auto) 0.8 %; Eosinophils # (auto) 0.26 K/uL (0-0.5); Eosinophils % (auto) 3.9 %; Hemoglobin 13.2 g/dL (14.0-18.0); Immature Granulocytes # (auto) 0.01 K/uL (0.00-0.02); Immature Granulocytes % (auto) 0.2 %; Lymphocytes # (auto) 2.59 K/uL (1.2-3.4); Lymphocytes % (auto) 38.9 %; Mean Corpuscular Hemoglobin 32.5 pg (25-34); Mean Corpuscular Hgb Conc 33.8 g/dL (32-36); Mean Corpuscular Volume 96.1 fL (80-100); Mean Platelet Volume 9.5 fL (7.4-10.4); Monocytes # (auto) 0.59 K/uL (0.11-0.59); Monocytes % (auto) 8.9 %; Neutrophils # (auto) 3.15 K/uL (1.4-6.5); Neutrophils % (auto) 47.3 %; Platelet Count 263 K/uL (130-400); RDW Coefficient of Variation 13.1 % (11.5-14.5); Red Blood Count 4.06 M/uL (4.7-6.1); White Blood Count 6.65 K/uL (4.8-10.8)
[2021-01-07 05:52] LABS: Partial Thromboplastin Ratio 1.1; Partial Thromboplastin Time 28.3 Seconds (21.0-31.0)
[2021-01-07 06:06] LABS: BUN Creatinine Ratio 19.8 (10-20); Calcium 8.1 mg/dl (8.5-10.1); Creatinine Clr Calc Pharmacy 149.3 ml/min; Est GFR (Non-African American) 100.1 ml/min; Potassium 3.5 mmol/L (3.5-5.1)
[2021-01-07 06:23] LABS: Lyme Ab IgG w/WB Rflx Negative (Negative); Lyme Ab IgM w/WB Rflx Negative (Negative)
[2021-01-07] MEDS: ASPIRIN 81 MG ECTAB PO SCH (08:44)
[2021-01-07] MEDS: METOPROLOL SUCC 50MG EXT REL TAB PO SCH (08:44)
[2021-01-07] MEDS: ENOXAPARIN INJ 40 MG/0.4 ML SYR SQ SCH (08:46)
[2021-01-07] MEDS ORDERED: LOSARTAN POTASSIUM 50 MG TAB PO SCH (09:00)
[2021-01-07] MEDS: oxyCODONE HCL IR 5 MG TAB (IMMEDIATE RELEASE) PO PRN ×2 (09:17→15:38)
--- NOTE | 2021-01-07 10:16 | Cardiology Consultation ---
Date of Consultation January 07, 2021 Assessment & Plan (1) Atypical chest pain: (2) HTN (hypertension): (3) Dyslipidemia: (4) Prolonged QT interval: 55-year-old patient admitted with chest discomfort and atypical features. Cardiac enzymes are undetectable, no regional wall motion abnormalities per echocardiogram. Nonspecific T wave abnormality noted on ECG. Recommend repeat cardiac enzymes x1 set. Continue aspirin, metoprolol and losartan. Restart amlodipine to improve blood pressure control. Inpatient versus outpatient stress testing discussed given negative cardiac enzymes and normal echo. Patient agreeable to exercise stress echo in a.m. 01/08/2021. N.p.o. except medications after midnight. Lipid panel reviewed demonstrating hypertriglyceridemia and borderline elevated LDL. In the setting of family history and risk factors, moderate intensity statin therapy recommended. Add atorvastatin 20 mg daily. Prolonged QT intermittently noted on ECGs both in the outpatient setting and during hospitalization. Patient without history of syncope or palpitations. No dysrhythmias per telemetry. Continue beta-bunny therapy. Outpatient cardiovascular genetic testing recommended. Maintain adequate electrolyte replacement. Avoid medications with the potential to prolong the QT interval. Thank you for allow me to participate in the care of your patient. Further recommendations pending result of stress testing. History of Present Illness Reason for Consultation: Chest pain Requesting Physician: Dr. Urbina Attending Physician: Dewayne Roberts MD History of Present Illness 55-year-old patient present to the emergency department with approximately 48 hours of intermittent chest discomfort. Began noting chest discomfort on Friday. Describes a pain that radiates to his left shoulder. The pain becomes quite intense, 7/10 at times. No associated shortness of breath. Discomfort is not associated with activity, exertion or position. No associated palpitations, lightheadedness, dizziness, syncope, or near syncope. ECG on admission within normal limits. Repeat ECG demonstrating nonspecific T wave abnormality. Cardiac enzymes undetectable. Bedside 2D transthoracic echocardiogram demonstrating normal wall motion with concentric left ventricular hypertrophy. Blood pressure elevated since admission. Admits to discontinuing amlodipine several weeks ago. Requesting diet this morning. Notes a headache attributed to lack of food. No orthopnea, PND, or lower extremity edema. Voices concern regarding family history of coronary disease, brother suffered a myocardial infarction in his 50s. Admits to smoking cigarettes occasionally. 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 Reports significant stress. Allergies Allergy/AdvReac Type Severity Reaction Status Date / Time ketorolac [From Toradol] AdvReac Migraine Verified 01/06/21 19:58 Home Medications Medication Instructions Recorded Confirmed Type aspirin 81 mg tablet,delayed 81 mg PO DAILY 01/06/21 01/06/21 History release hydrocodone 7.5 mg-ibuprofen 200 1 tab PO Q6 PRN 01/06/21 01/06/21 History mg tablet losartan 100 mg tablet 100 mg PO DAILY 01/06/21 01/06/21 History metoprolol succinate 50 mg 50 mg PO QPM 01/06/21 01/06/21 History tablet,extended release 24 hr metoprolol succinate 50 mg 100 mg PO QAM 01/06/21 01/06/21 History tablet,extended release 24 hr Patient History Social History Smoking Status: Current some day smoker Cigarettes Per Day: 4 per day 2 days a week.; Do You Dip or Chew Tobacco: No; Hx Alcohol Use: No Hx Substance Use: No Preferred Language: Serbian Communication Ability: Effective Floor Refinisher Required: No Beliefs That Will Affect Care: Islam Islam Beliefs: Latter Day. Current Living Situation: Spouse and Family Current Living Situation Comment: 2 children as well. Other Information That Helps Us Care for You: No Feels Safe at Home: Yes Safety Concerns: Feels Safe At This Time Assistive Devices: None Assistive Devices Comment: Occasional use of hindged knee brace on R. Review of Systems Review of Systems: All systems reviewed & are unremarkable except as noted in Subjective Physical Exam Constitutional: well developed, well nourished and + obese; not ill appearing Respiratory: normal respiratory effort; no respiratory distress, no labored breathing and no retractions Auscultation: lungs clear to auscultation bilaterally; no crackles, no rales, no rhonchi and no wheezes Cardiovascular: Rate/Rhythm: regular rate and regular rhythm Heart Sounds: normal S1 and normal S2; no gallop, no murmur and no cardiac rub Gastrointestinal (Abdomen): Inspection/Auscultation: abdomen normal to inspection and normal bowel sounds; abdomen not distended Percussion/Palpation: abdomen soft; abdomen nontender, no guarding and abdomen not rigid Neurologic: CN's II-XI intact bilaterally and moves all extremities; no focal motor deficits Motor/Sensory: no tremor Psychiatric: Affect: + depressed affect and + anxious affect Results & Data ([facility]) Vital Signs (Past 12 Hours) Vital Signs Temp Pulse Pulse Resp BP Pulse Ox Pulse Ox 01/07/21 07:49 68 01/07/21 07:23 36.5 C 75 20 165/102 H 98 01/07/21 05:04 89 01/07/21 04:14 23 95 01/07/21 03:33 85 153/93 H 01/07/21 02:54 70 185/137 H 01/07/21 02:46 36.7 C 71 24 201/146 H 97 01/07/21 00:33 87 157/90 H 01/06/21 23:38 93 H 157/96 H 01/06/21 23:19 98 01/06/21 23:18 88 173/129 H 01/06/21 22:24 36.7 C 77 22 171/108 H 97 (1) HTN (hypertension) Hypertension type: unspecified Qualified Code(s): I10 - Essential (primary) hypertension
[2021-01-07] MEDS: ATORVASTATIN 20 MG TAB PO SCH (12:55)
[2021-01-07] MEDS: amLODIPine BESYLATE 5 MG TAB PO SCH (12:56)
--- NOTE | 2021-01-07 13:37 | Hospitalist Progress Note ---
Date of Service January 07, 2021 Assessment & Plan (1) Left-sided chest pain: (2) Atypical chest pain: (3) HTN (hypertension): Plan: -Trop negx 3 - EKG: NSR, Normal axis, T wave abnormalities on V2, V5-V6 - Echo: EF of 60-65%, concentric LVH, Grade 1 diastolic dysfunction - Cardiology on board: Stress test tomorrow - CTA: no PE HTN: - elevated - started on amlodipine 5mg daily (which was his new home HTN meds but pt was not taking it) Incidental pulm nodule: There are 2 indeterminant pulmonary nodules in the left lung measuring up to 4 mm. If warranted disease can be followed as per the Fleischner criteria. Nicotine patch as needed DVT prophylaxis. Lovenox subcu Full code Patient's : Ms. Doretha Gilliam, contact #[phone]. Admission and Anticipated Discharge Date Admission Date: January 06, 2021 Subjective Pt is a 55 y/o M with hx of HTN, HLD, prediabetes and PAM admitted for ACS r/o Today at bedside: pt continues to complain about L sided chest pain that radiates to the L arm -- had this pain for 3 days - denied any abd pain, N/V - no prior hx of SD Review of Systems Review of Systems: all negative except as indicated in HPI Physical Exam Physical Exam: General:. NAD, well developed HEENT:. Normal Conjunctiva, EOMI Lungs:. CTA, no wheezing or crackles Heart:. Normal S1, S2, no murmur Abdominal:. ND, Soft, NT MSK:trace pitting edema of the B/L LE Psych:. AAOx3, normal affect Results & Data Results & Data ([facility]) Vital Signs (Past 12 Hours) Vital Signs Temp Pulse Pulse Resp BP Pulse Ox 01/07/21 11:08 36.7 C 72 17 178/118 H 97 01/07/21 07:49 68 01/07/21 07:23 36.5 C 75 20 165/102 H 98 01/07/21 05:04 89 01/07/21 04:14 23 95 01/07/21 03:33 85 153/93 H 01/07/21 02:54 70 185/137 H 01/07/21 02:46 36.7 C 71 24 201/146 H 97 Laboratory Results Short CBC 01/06/21 01/07/21 Range/Units 18:20 05:21 WBC 8.05 6.65 (4.8-10.8) K/uL Hgb 14.1 13.2 L (14.0-18.0) g/dL Hct 41.5 L 39.0 L (42-52) % Plt Count 311 263 (130-400) K/uL BMP 01/06/21 01/07/21 18:20 05:21 Sodium 139 140 Potassium 4.0 3.5 Chloride 108 H 109 H Carbon Dioxide 27 29 BUN 19 H 16 Creatinine 0.96 0.81 Glucose 139 H 120 H Calcium 9.1 8.1 L Cardiac Enzymes 01/06/21 01/06/21 01/06/21 Range/Units 18:20 21:10 23:45 Troponin I < 0.015 < 0.015 < 0.015 (0-0.045) ng/ml 01/07/21 01/07/21 Range/Units 05:21 11:19 Troponin I < 0.015 < 0.015 (0-0.045) ng/ml Liver Function 01/06/21 Range/Units 18:20 Total Bilirubin 0.3 (0.2-1) mg/dl AST 18 (15-37) U/L ALT 29 (12-78) U/L Alkaline Phosphatase 93 (45-117) U/L Albumin 3.9 (3.4-5.0) gm/dl Urine 01/07/21 Range/Units 03:30 Urine Color Yellow Urine Appearance Clear (Clear) Urine pH 5.5 (4.5-7.5) Ur Specific [place] > 1.045 H (1.000-1.030) Urine Protein Negative (Negative) Urine Glucose (UA) Negative (Negative) (1) HTN (hypertension) Hypertension type: unspecified Qualified Code(s): I10 - Essential (primary) hypertension
[2021-01-07] MEDS ORDERED: METOPROLOL SUCC 50MG EXT REL TAB PO SCH (21:00)
[2021-01-07] MEDS: ACETAMINOPHEN 325 MG TAB PO PRN (22:21)
--- NOTE | 2021-01-07 22:52 | Electrocardiogram Report ---
Test Reason : Blood Pressure : / mmHG Vent. Rate : 085 BPM Atrial Rate : 085 BPM P-R Int : 172 ms QRS Dur : 114 ms QT Int : 386 ms P-R-T Axes : 041 033 056 degrees QTc Int : 459 ms Normal sinus rhythm Nonspecific T wave abnormality Abnormal ECG When compared with ECG of 21-APR-2020 21:37, No significant change was found Confirmed by Rk Talbert ([id number]) on 01/07/2021 10:51:52 PM Referred By: REFERRED SELF Confirmed By:Rk Talbert
[2021-01-08] MEDS ORDERED: MELATONIN 3 MG TAB PO PRN (00:09)
--- NOTE | 2021-01-08 05:56 | Electrocardiogram Report ---
Test Reason : Blood Pressure : / mmHG Vent. Rate : 076 BPM Atrial Rate : 076 BPM P-R Int : 158 ms QRS Dur : 110 ms QT Int : 402 ms P-R-T Axes : 022 031 048 degrees QTc Int : 452 ms Normal sinus rhythm Normal ECG When compared with ECG of 06-JAN-2021 18:20, No significant change was found Confirmed by Rk Talbert ([id number]) on 01/08/2021 5:56:30 AM Referred By: REFERRED SELF Confirmed By:Rk Talbert
--- NOTE | 2021-01-08 06:02 | Electrocardiogram Report ---
Test Reason : Blood Pressure : / mmHG Vent. Rate : 093 BPM Atrial Rate : 093 BPM P-R Int : 154 ms QRS Dur : 116 ms QT Int : 404 ms P-R-T Axes : 054 040 051 degrees QTc Int : 502 ms Normal sinus rhythm Prolonged QT Abnormal ECG When compared with ECG of 06-JAN-2021 21:39, QT has lengthened Confirmed by Rk Talbert ([id number]) on 01/08/2021 6:02:12 AM Referred By: REFERRED SELF Confirmed By:Rk Talbert
--- NOTE | 2021-01-08 06:06 | Electrocardiogram Report ---
Test Reason : Blood Pressure : / mmHG Vent. Rate : 070 BPM Atrial Rate : 070 BPM P-R Int : 156 ms QRS Dur : 104 ms QT Int : 394 ms P-R-T Axes : 030 047 072 degrees QTc Int : 425 ms Normal sinus rhythm Nonspecific T wave abnormality Abnormal ECG When compared with ECG of 06-JAN-2021 23:35, Nonspecific T wave abnormality, worse in Lateral leads QT has shortened Confirmed by Rk Talbert ([id number]) on 01/08/2021 6:05:52 AM Referred By: REFERRED SELF Confirmed By:Rk Talbert
[2021-01-08] MEDS: HYDROmorphone INJ 1 MG/ML SYRINGE IV PRN ×3 (06:17→13:09)
[2021-01-08 06:37] LABS: Basophils # (auto) 0.04 K/uL (0-0.2); Basophils % (auto) 0.5 %; Eosinophils # (auto) 0.24 K/uL (0-0.5); Eosinophils % (auto) 2.9 %; Hematocrit (blood only) 42.6 % (42-52); Hemoglobin 14.5 g/dL (14.0-18.0); Immature Granulocytes # (auto) 0.03 K/uL (0.00-0.02); Immature Granulocytes % (auto) 0.4 %; Lymphocytes # (auto) 2.75 K/uL (1.2-3.4); Lymphocytes % (auto) 33.7 %; Mean Platelet Volume 9.7 fL (7.4-10.4); Monocytes # (auto) 0.62 K/uL (0.11-0.59); Monocytes % (auto) 7.6 %; Neutrophils # (auto) 4.48 K/uL (1.4-6.5); Neutrophils % (auto) 54.9 %; Platelet Count 309 K/uL (130-400); RDW Coefficient of Variation 12.8 % (11.5-14.5); RDW Standard Deviation 44.1 fL (36.4-46.3); Red Blood Count 4.53 M/uL (4.7-6.1); White Blood Count 8.16 K/uL (4.8-10.8)
[2021-01-08 07:04] LABS: BUN Creatinine Ratio 20.1 (10-20); Calcium 8.8 mg/dl (8.5-10.1); Creatinine Clr Calc Pharmacy 128.5 ml/min; Est GFR (African American) 113.1 ml/min; Est GFR (Non-African American) 97.6 ml/min; Magnesium 2.1 mg/dl (1.8-2.4)
[2021-01-08] MEDS: ASPIRIN 81 MG ECTAB PO SCH (08:08)
[2021-01-08] MEDS: ATORVASTATIN 20 MG TAB PO SCH (08:08)
[2021-01-08] MEDS: LOSARTAN POTASSIUM 50 MG TAB PO SCH (08:08)
[2021-01-08] MEDS: amLODIPine BESYLATE 5 MG TAB PO SCH (08:08)
[2021-01-08] MEDS: METOPROLOL SUCC 50MG EXT REL TAB PO SCH (08:08)
[2021-01-08] MEDS: ENOXAPARIN INJ 40 MG/0.4 ML SYR SQ SCH (08:09)
[2021-01-08] MEDS: ACETAMINOPHEN 325 MG TAB PO PRN (08:11)
[2021-01-08 11:20] VITALS: BP 146/83; PULSE 74; TEMP 97.9; O2SAT 93
--- NOTE | 2021-01-08 11:59 | Cardiology Progress Note ---
Date of Service January 08, 2021 Assessment & Plan (1) Atypical chest pain: (2) HTN (hypertension): (3) Dyslipidemia: (4) Prolonged QT interval: Plan: Exercise stress echo negative for inducible ischemia. No further inpatient cardiac testing or intervention at this time. Medications added during hospitalization include amlodipine and atorvastatin. Recommend continuing these medications in the outpatient setting. Prolonged QT intermittently noted on ECGs both in the outpatient setting and during hospitalization. Patient without history of syncope or palpitations. No dysrhythmias per telemetry. Continue beta-bunny therapy. Outpatient cardiovascular genetic testing recommended. Maintain adequate electrolyte replacement. Avoid medications with the potential to prolong the QT interval. Thank you for allow me to participate in the care of your patient. Cardiology will sign off. Admission and Anticipated Discharge Date Admission Date: January 07, 2021 Subjective Patient seen and examined at the bedside. Exercise stress echo performed this a.m. without complication. No evidence of inducible ischemia. Adequate worklo ad achieved. Patient consumed his a.m. meal. Feeling much better from a cardiovascular perspective. Telemetry reveals sinus rhythm, no dysrhythmias. He has questions regarding prolonged QT on ECG. Offers no other concerns/complaints. Review of Systems Review of Systems: All systems reviewed & are unremarkable except as noted in Subjective Physical Exam Constitutional: well developed, well nourished and + obese; not ill appearing Respiratory: normal respiratory effort; no respiratory distress, no labored breathing and no retractions Auscultation: lungs clear to auscultation bilate rally; no crackles, no rales, no rhonchi and no wheezes Cardiovascular: Rate/Rhythm: regular rate and regular rhythm Heart Sounds: normal S1 and normal S2; no gallop, no murmur and no cardiac rub Gastrointestinal (Abdomen): Inspection/Auscultation: abdomen normal to inspection and normal bowel sounds; abdomen not distended Percussion/Palpation: abdomen soft; abdomen nontender, no guarding and abdomen not rigid Neurologic: CN's II-XI intact bilaterally and moves all extremities; no focal motor deficits Motor/Sensory: no tremor Psychiatric: Affect: + depressed affect and + anxious affect Results & Data ([facility]) Vital Signs (Past 12 Hours) Vital Signs Temp Pulse Pulse Resp BP Pulse Ox 01/08/21 11:19 36.6 C 74 18 146/83 H 93 01/08/21 07:13 36.4 C L 69 16 139/81 97 01/08/21 03:38 36.6 C 73 19 146/88 H 98 01/08/21 00:38 81 01/08/21 00:35 22 94 (1) HTN (hypertension) Hypertension type: unspecified Qualified Code(s): I10 - Essential (primary) hypertension
--- NOTE | 2021-01-08 13:25 | Discharge Summary ---
Date of Service January 08, 2021 Admission HPI Per Admitting Provider History obtained from patient, family, and records. Medical history significant for hypertension, hyperlipidemia, PAM as per records, prediabetes, BPH, intermittent tobacco abuse. Patient was at a local store shopping with his family yesterday when he experienced achy left-sided chest pain with radiation to the left shoulder with some shortness of breath. No cough symptoms. No rashes. No recollection of recent trauma. Patient did not sleep well the other night. 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 No relief with aspirin intake. Persistent symptoms prompted ER consultation this afternoon. Chest pain not relieved by nitroglycerin administration at the ER. 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 Principal Diagnosis GENERAL: uncomfortable, anxious, morbidly obese, no respiratory distress SKIN: Normal color, warm HEENT: [place] palpebral conjunctivae, no ptosis, moist buccal mucosa NECK : Supple, short neck, no tenderness CHEST : CTA, no tenderness HEART : RRR, no obvious murmurs ABDOMEN: Some distention, nontender EXTREMITIES : No LE swelling/tenderness, no other conspicuous deformities noted NEUROLOGIC : Coherent, no facial asymmetry, no other gross focality Discharge Exam General: A&Ox3 HENT: NCAT, MMM, EOMI Eyes: PERRLA Neck: Supple, normal range of motion CVS: normal rate and rhythm Resp: b/l good breath sounds Abdomen: Soft, ND/NT, +BS Extremities: No c/c/e Neuro: face symmetric, strength grossly equal, no focal deficit Skin: warm and dry, no rashes/lesions/errythema MSK: normal ROM, no joint swelling/erythema Discharge Data Allergies Allergy/AdvReac Type Severity Reaction Status Date / Time ketorolac [From Toradol] AdvReac Migraine Verified 01/06/21 19:58 Consultations 01/06/21 19:57 ED Decision to Admit Stat 01/06/21 21:10 Consult Cardiology Routine Ordered Studies 01/06/21 18:46 CT angio chest dissec wo/w con Stat Hospital Course (1) Left-sided chest pain: (2) Atypical chest pain: (3) HTN (hypertension): -Trop negx 3 - EKG: NSR, Normal axis, T wave abnormalities on V2, V5-V6 - Echo: EF of 60-65%, concentric LVH, Grade 1 diastolic dysfunction - CTA: no PE Cardiology was consulted. Patient had stress test which was negative. Cardiology did not have any further recommendations. On the day of discharge patient was evaluated by me reported the chest pain as left-sided radiated to the left shoulder. Patient reports the pain was similar to his previous left shoulder rotator pain. Denies any radiation to the back. Denies any exacerbating factors or any relieving factors. I did offer patient pain management and physical therapy as an outpatient but patient stated that he will have his PCP take a look into it. On the day of discharge he was doing okay. Hemodynamically he was doing fine. He was discharged in stable condition. HTN: Patient was discharged on amlodipine 5 mg daily in addition to his daily medications. Incidental pulm nodule: There are 2 indeterminant pulmonary nodules in the left lung measuring up to 4 mm. If warranted disease can be followed as per the Fleischner criteria. Follow-up with your PCP. Total Time Total Time Spent Total Time Spent (In Minutes): 35 Discharge Plan Discharge Items Patient Disposition: Home - Self-Care Reason For Visit: CP Discharge Diagnosis: Chest pain Activity: Resume your previous activity Lifting: No more than 25 pounds Non-emergency contact: Primary Care Provider Call non-emergency contact if: your symptoms worsen Follow-up/Referrals: Godfrey Jaimes MD [Primary Care Provider] - (Date & Time 01/12/2021 12:00 PM Provider Godfrey Jaimes MD Department General Internal Medicine [facility] ) Diet: Heart Healthy Addtl Attending Provider Instructions: Follow up with your primary care physician. Incidental pulm nodule: There are 2 indeterminant pulmonary nodules in the left lung measuring up to 4 mm. Please follow up with your physician for further management. Pending Studies at Discharge: No Stand-Alone Forms: My [employer], Work/School Release, Smoking Cessation Medications and DC Order Prescriptions: New atorvastatin 20 mg Tablet 20 mg PO QAM Qty: 30 RF: 0 amlodipine [Norvasc] 5 mg Tablet 5 mg PO QAM Qty: 30 RF: 0 Continued hydrocodone-ibuprofen 7.5-200 mg tablet 1 tab PO Q6 PRN (Reason: Pain) RF: 0 metoprolol succinate 50 mg tablet extended release 24 hr 100 mg PO QAM RF: 0 metoprolol succinate 50 mg tablet extended release 24 hr 50 mg PO QPM RF: 0 aspirin [Aspir-Low] 81 mg Tablet,Delayed Release (Dr/Ec) 81 mg PO DAILY RF: 0 losartan 100 mg tablet 100 mg PO DAILY RF: 0 Discharge Orders: Discharge Order (Routine); Ordered 01/08/21 Ordered By: Niurka Carlos Admission Data Admit Date/Time: 01/07/21 17:19 Attending Provider: Niurka Carlos Admit Provider: Christoph Tirado Primary Care Provider: Godfrey Jaimes Other Providers: Christoph Tirado ; Charlie Viramontes ; Scottie Daniels ; Emory Yost ; Jose Lora ; Satinder Jacob ; Chad Peterson ; Tri Joseph ; Dasha Caputo ; Joy Mercado ; Tadeo Turner
[2021-01-10 10:36] LABS: 7-Aminoclonaz, Confirm NEGATIVE ng/mL (<25); Codeine Urine NEGATIVE ng/mL (<50); Hydro-Alp Ur, GC/MS NEGATIVE ng/mL (<25); Hydrocodone Urine 3470 ng/mL (<50); Hydromor Urine 2910 ng/mL (<50); Hydroxyethylflurazepam, Conf NEGATIVE ng/mL (<50); Hydroxymidazolam Ur, GC/MS NEGATIVE ng/mL (<50); Hydroxytriazolam NEGATIVE ng/mL (<50); Lorazepam, Ur GC/MS NEGATIVE ng/mL (<50); Morphine Urine 3900 ng/mL (<50); Nordiazepam, Confirm NEGATIVE ng/mL (<50); Norhydrocodone Conf Ur 3470 ng/mL (<50); Noroxycodone Urine NEGATIVE ng/mL (<50); Oxazepam Ur, GC/MS NEGATIVE ng/mL (<50); Oxycodone Urine NEGATIVE ng/mL (<50); Oxymorph Urine NEGATIVE ng/mL (<50); Temazepam, Confirm 72 ng/mL (<50)
== END 2021-01-08 15:15 | disposition home or self-care (01) ==
LOC: 2S 18:05 → ED 18:05 → 2S 21:47 → SUATTDRO 01-07 17:19
DX: Z79.82 Long term (current) use of aspirin; I10 Essential (primary) hypertension; R94.31 Abnormal electrocardiogram [ECG] [EKG]; K76.0 Fatty (change of) liver, not elsewhere classified; R07.89 Other chest pain; E78.5 Hyperlipidemia, unspecified; Z20.822 Contact with and (suspected) exposure to COVID-19; Z79.899 Other long term (current) drug therapy; R73.03 Prediabetes; N40.0 Benign prostatic hyperplasia without lower urinary tract symptoms; F17.210 Nicotine dependence, cigarettes, uncomplicated; R91.1 Solitary pulmonary nodule; Z88.8 Allergy status to other drugs, medicaments and biological substances

== ENCOUNTER 2022-07-05 16:56 | Observation (INO) ==
[2022-07-05 18:06] LABS: Basophils # (auto) 0.06 K/uL (0-0.2); Basophils % (auto) 0.6 %; Eosinophils # (auto) 0.29 K/uL (0-0.50); Eosinophils % (auto) 2.8 %; Hematocrit (blood only) 38.6 % (42.0-52.0); Hemoglobin 13.2 g/dl (14.0-18.0); Immature Granulocytes # (auto) 0.04 K/uL (0.01-0.20); Immature Granulocytes % (auto) 0.4 %; Lymphocytes # (auto) 1.51 K/uL (1.2-3.4); Lymphocytes % (auto) 14.7 %; Mean Corpuscular Hemoglobin 31.5 pg (25.0-34.0); Mean Corpuscular Hgb Conc 34.2 g/dL (32.0-36.0); Mean Corpuscular Volume 92.1 fL (80.0-100.0); Mean Platelet Volume 10.2 fL (9.4-12.4); Monocytes # (auto) 0.89 K/uL (0.11-0.59); Monocytes % (auto) 8.7 %; Neutrophils # (auto) 7.45 K/uL (1.40-6.50); Neutrophils % (auto) 72.8 %; Platelet Count 276 K/uL (130-400); RDW Coefficient of Variation 12.4 % (11.5-14.5); RDW Standard Deviation 42.1 fL (36.4-46.3); Red Blood Count 4.19 M/uL (4.70-6.10); White Blood Count 10.24 K/ul (4.8-10.8)
[2022-07-05 18:12] LABS: Albumin Level 4.2 gm/dl (3.4-5.0); Bilirubin,Total 0.4 mg/dl (0.2-1.0); Potassium 3.7 mmol/L (3.5-5.1)
[2022-07-05 18:18] LABS: Albumin Globulin Ratio 1.4 (0.9-2); BUN Creatinine Ratio 24.2 (10-20); Creatinine Clr Calc Pharmacy 123.1 ml/min; Est GFR (African American) 108.8 ml/min; Est GFR (Non-African American) 93.9 ml/min; Globulin 3.1 gm/dl (2.5-4.0); Total Protein 7.3 gm/dl (6.0-8.3)
[2022-07-05] MEDS ORDERED: ONDANSETRON INJ 2 MG/ML 2 ML VIAL IV STA (18:18)
[2022-07-05] MEDS ORDERED: HYDROmorphone INJ 1 MG/ML SYRINGE IV STA (18:18)
[2022-07-05 18:33] LABS: Partial Thromboplastin Time 28.4 Seconds (21.0-31.0); Prothrombin Time 10.3 Seconds (9.0-12.0)
[2022-07-05 19:34] LABS: D Dimer 400 ug/L FEU (0-500)
--- NOTE | 2022-07-05 19:34 | XRay Report ---
XR chest 1V portable HISTORY: Atypical chest pain COMPARISON: Chest 01/24/2021. FINDINGS: There are low lung volumes. Mild interstitial thickening at the lung bases may be due to va scular crowding from the low lung volumes. Otherwise, no focal lung consolidations to suggest a pneum onia. No evidence for pulmonary edema. Prominence of the cardiac silhouette is also likely accentuate d by the low lung volumes. IMPRESSION: Low lung volumes. Otherwise, no acute process within the chest. ACT 112: Negative or not required by law. Electronically signed by: Chemo Choudhary M.D. 07/05/2022 7:32 PM
[2022-07-05] MEDS ORDERED: HYDROmorphone INJ 1 MG/ML SYRINGE IV PRN (19:41)
[2022-07-05] MEDS ORDERED: METOPROLOL SUCC 50MG EXT REL TAB PO STA ×2 (20:29→23:01)
[2022-07-05] MEDS ORDERED: MoRPHine SULFATE 4 MG/ML 1 ML CARP\\VIAL IV STA (20:54)
--- NOTE | 2022-07-05 20:54 | History & Physical Report ---
Date of Service July 05, 2022 Assessment & Plan (1) Left-sided chest pain: Plan: Secondary to uncontrolled BP Multifactorial : Medication noncompliance Otalgia from bilateral otitis externa Rule out ACS given patient risk factors for ischemic heart disease hx diastolic dysfunction, patient euvolemic hyperlipidemia, patient noncompliant with home statin Rx PAM on CPAP, chronic back pain, patient off narcotic Rx from PCP given concerns for drug diversion as per outpatient records prediabetes, hemoglobin A1c of 5.9 from April 2021 past tobacco abuse OBS PCU Analgesia Titrate beta-bunny, resume ARB Rx in a.m. Aspirin for CAD prevention until ACS ruled out Follow troponin TTE, Cardiology consult in a.m. RE chest pain N p.o. after midnight in anticipation of ischemic work-up Resume statin Rx Update lipid profile, hemoglobin A1c Topical Rx for bilateral otitis externa DVT prophylaxis. Lovenox subcu Full code Patient's requesting update providers. Ms. Doretha Gilliam, contact #[phone]. Text document was generated using [employer] voice recognition software. It may contain grammatical or spelling errors. Kindly contact undersigned for clarification of any documentation item in question. History of Present Illness Chief Complaint: Chest pain Primary Care Provider: Dr. Jaimes History obtained from patient, family, and records. Medical history significant for diastolic dysfunction (EF 65%, TTE 2020), hypertension, hyperlipidemia, PAM on CPAP as per records, chronic back pain status post multiple surgeries, prediabetes, NAFLD, BPH, past tobacco abuse. Last confinement December 2020 for left-sided chest pain. ACS ruled out with negative stress test. Yesterday, patient noted achy bilateral ear pain with some discharge, fever, chills. Decreased hearing. Patient uses a lot of Q-tips as per . Patient roused from sleep this afternoon with sharp left-sided chest pain going to the neck and left upper arm associated with shortness of breath and sweatiness symptoms. SBP 220s upon EMS arrival. Usual SBP 1 30-1 40s as per patient on lone beta-bunny medication. Patient unable to take losartan and amlodipine home medications the last few months due to insurance issues. Patient compliant with CPAP. Denies dietary indiscretion or unusual stress at home. Some improvement of discomfort with aspirin and nitroglycerin administration at home. Patient brought to ER for evaluation. 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 Allergies Allergy/AdvReac Type Severity Reaction Status Date / Time iodine Allergy Severe Anaphylaxis Verified 07/05/22 18:10 ketorolac [From Toradol] AdvReac Intermediate Migraine Verified 07/05/22 18:10 Home Medications Medication Instructions Recorded Confirmed Type metoprolol succinate 50 mg See Rx Instructions .Route .COMPLEX 01/06/21 07/05/22 History tablet,extended release 24 hr Past Med/Surg History Medical History Chronic low back pain Controlled substance agreement broken Dyslipidemia HTN (hypertension) Family History Other Family history non-contributory Social History Smoking Status: Never smoker Tobacco Type: Cigarettes Cigarettes Per Day: 4 PER DAY 2 TIMES PER WEEK; Hx Alcohol Use: No Hx Substance Use: No Preferred Language: Greek Communication Ability: Effective [place] [employer] Hand Required: No Beliefs That Will Affect Care: None marital status: Current Living Situation: Spouse Current Living Situation Comment: 2 children as well. How many Children do You have: 2 Other Information That Helps Us Care for You: No Feels Safe at Home: Yes Safety Concerns: Feels Safe At This Time Assistive Devices: CPAP Review of Systems Review of Systems: As per HPI, all other systems reviewed and negative Physical Exam Physical Exam: GENERAL: uncomfortable, anxious, morbidly obese, no respiratory distress SKIN: Normal color, warm HEENT: [address] palpebral conjunctivae, no ptosis, moist buccal mucosa; bilateral tragal tenderness and EAC erythema causing narrowing, TMs not fully visualized NECK : Supple, short neck, no tenderness CHEST : CTA, no tenderness HEART : RRR, no obvious murmurs ABDOMEN: Some distention, nontender EXTREMITIES : No LE swelling/tenderness, no other conspicuous deformities noted NEUROLOGIC : Coherent, no facial asymmetry, no other gross focality Results & Data Results & Data ([facility]) Vital Signs (Past 12 Hours) Vital Signs Temp Pulse Pulse Resp BP BP Pulse Ox 07/05/22 20:30 87 20 163/101 H 97 02/24/23 19:06 85 22 167/94 H 96 07/05/22 17:51 96 H 29 H 156/93 H 94 07/05/22 17:59 96 07/05/22 17:50 97 H 25 H 156/93 H 94 07/05/22 17:12 36.8 C 106 H 24 147/94 H 95 07/05/22 17:09 106 H O2 Del Method 07/05/22 20:30 Room Air 07/05/22 19:06 Room Air 07/05/22 17:51 Room Air 07/05/22 17:59 Room Air 07/05/22 17:50 Room Air 07/05/22 17:12 Room Air 07/05/22 17:09 Laboratory Results Laboratory Results WBC 10.24 K/ul (4.8-10.8) 07/05/22 17:12 RBC 4.19 M/uL (4.70-6.10) L 07/05/22 17:12 Hgb 13.2 g/dl (14.0-18.0) L 07/05/22 17:12 Hct 38.6 % (42.0-52.0) L 07/05/22 17:12 MCV 92.1 fL (80.0-100.0) 07/05/22 17:12 MCH 31.5 pg (25.0-34.0) 07/05/22 17:12 MCHC 34.2 g/dL (32.0-36.0) 07/05/22 17:12 RDW Std Deviation 42.1 fL (36.4-46.3) 07/05/22 17:12 RDW Coeff of Christy 12.4 % (11.5-14.5) 07/05/22 17:12 Plt Count 276 K/uL (130-400) 07/05/22 17:12 MPV 10.2 fL (9.4-12.4) 07/05/22 17:12 Immature Gran % (Auto) 0.4 % 07/05/22 17:12 Neut % (Auto) 72.8 % 07/05/22 17:12 Lymph % (Auto) 14.7 % 07/05/22 17:12 [place] % (Auto) 8.7 % 07/05/22 17:12 Eos % (Auto) 2.8 % 07/05/22 17:12 Baso % (Auto) 0.6 % 07/05/22 17:12 Neut # (Auto) 7.45 K/uL (1.40-6.50) H 07/05/22 17:12 Lymph # (Auto) 1.51 K/uL (1.2-3.4) 07/05/22 17:12 [place] # (Auto) 0.89 K/uL (0.11-0.59) H 07/05/22 17:12 Eos # (Auto) 0.29 K/uL (0-0.50) 07/05/22 17:12 Baso # (Auto) 0.06 K/uL (0-0.2) 07/05/22 17:12 Immature Gran # (Auto) 0.04 K/uL (0.01-0.20) 07/05/22 17:12 PT 10.3 Seconds (9.0-12.0) 07/05/22 17:12 INR 1.0 (0.9-1.1) 07/05/22 17:12 APTT 28.4 Seconds (21.0-31.0) 07/05/22 17:12 PTT Ratio 1.0 07/05/22 17:12 D-Dimer 400 ug/L FEU (0-500) 07/05/22 18:20 Sodium 138 mmol/L (136-145) 07/05/22 17:12 Potassium 3.7 mmol/L (3.5-5.1) 07/05/22 17:12 Chloride 104 mmol/L (98-107) 07/05/22 17:12 Carbon Dioxide 29 mmol/L (21-32) 07/05/22 17:12 Anion Gap 5 (3-11) 07/05/22 17:12 BUN 22 mg/dl (6-23) 07/05/22 17:12 Creatinine 0.91 mg/dl (0.6-1.4) 07/05/22 17:12 Est Cr Clr Drug Dosing 123.1 ml/min 07/05/22 17:12 Est GFR ( Amer) 108.8 ml/min 07/05/22 17:12 Est GFR (Non-Af Amer) 93.9 ml/min 07/05/22 17:12 BUN/Creatinine Ratio 24.2 (10-20) H 07/05/22 17:12 Glucose 102 mg/dl (70-99(Fasting)) H 07/05/22 17:12 Calcium 9.0 mg/dl (8.5-10.1) 07/05/22 17:12 Total Bilirubin 0.4 mg/dl (0.2-1.0) 07/05/22 17:12 AST 15 U/L (13-39) 07/05/22 17:12 ALT 14 U/L (7-52) 07/05/22 17:12 Alkaline Phosphatase 86 U/L (34-104) 07/05/22 17:12 Troponin I High Sens 7.0 pg/ml (0-20) 07/05/22 17:12 Total Protein 7.3 gm/dl (6.0-8.3) 07/05/22 17:12 Albumin 4.2 gm/dl (3.4-5.0) 07/05/22 17:12 Globulin 3.1 gm/dl (2.5-4.0) 07/05/22 17:12 Albumin/Globulin Ratio 1.4 (0.9-2) 07/05/22 17:12 SARS-CoV-2, RNA, NAAT NEGATIVE (NEGATIVE) 07/05/22 19:56 Impressions Chest X-Ray 07/05/22 19:12 XR chest 1V portable HISTORY: Atypical chest pain COMPARISON: Chest 01/24/2021. FINDINGS: There are low lung volumes. Mild interstitial thickening at the lung bases may be due to vascular crowding from the low lung volumes. Otherwise, no focal lung consolidations to suggest a pneumonia. No evidence for pulmonary edema. Prominence of the cardiac silhouette is also likely accentuated by the low lung volumes. IMPRESSION: Low lung volumes. Otherwise, no acute process within the chest. ACT 112: Negative or not required by law. Electronically signed by: Chemo Choudhary M.D. 07/05/2022 7:[address] temporal bone initial read: There is a small amount of fluid within the right mastoid air cells without evidence of trabecular dehiscence. There is a large amount of cerumen in the right external auditory canal. There is thickening of the skin lining the external auditory canal is concerning for otitis externa. No evidence of otitis media. The paranasal sinuses are clear. Dental caries with periapical lucency about tooth #1 concern for periapical abscess or pulpitis. No comparisons. EKG as per my interpretation : Rate 110, sinus tachycardia, RAD, LPFB, T wave abnormalities lateral leads
--- NOTE | 2022-07-05 20:57 | Emergency Department Note ---
Impression & Plan Retrosternal chest pain ED Provider Note INFORMANT: Patient ED PROVIDER(S): Rafael Bella MD CHIEF COMPLAINT: Chest pain PLAN: Disposition: Admitted Condition: Good Outpatient prescription management: none Referral: None MEDICAL DECISION MAKING: Patient presented to the emergency department because of severe chest pain. He had no relief with nitroglycerin. Patient was given IV Dilaudid times multiple doses and was reassessed. He was feeling better although still had discomfort. Laboratory testing was performed and revealed unremarkable CBC and chemistry panel. His troponin was negative. ECG was nonischemic although did show tachycardia. D-dimer testing was negative. Given the severity the patient's chest pain I was concerned and discussed further management in the hospital. Patient was in agreement. Consultation was made with Dr. Christoph Tirado, [facility] hospitalist service. Patient was evaluated in the ER and admitted for further management Discussed with the manager drive. After review of the information above and other included data, I feel the patient requires admission. Triage Nursing notes reviewed and agree them. Vital Signs: reviewed and remarkable for hypertension Prior /Outside records reviewed: none Differential diagnosis: Cardiac ischemia, aortic dissection, pulmonary embolism, pneumothorax, pneumonia, pericarditis, myocarditis, esophageal rupture, GERD, cholecystitis, pancreatitis, musculoskeletal, as well as other pathologies. Diagnostics, as interpreted by me: ECG: Twelve-lead ECG reveals sinus tachycardia 109 bpm. Left posterior fascicular block. No ST elevation or depression. No PVCs Cardiac Monitoring: Cardiac monitoring ordered by me: The patient was placed on continuous cardiac monitoring and observed. It revealed a normal sinus rhythm at 95 beats per minute without ectopy or evidence of dysrhythmia. Medical decision rules: Patient moderate risk by HEART score Imaging studies: Chest x-ray. Findings: A chest x-ray was performed and revealed no pneumothorax, effusion, infiltrate, pulmonary edema, free air under the diaphragm, or wide mediastinum. Impression: No acute disease. HPI: The patient is a 56year old male who presents to the Emergency Room with complaints of chest pain. This started 1420 hrs. and is described as sharp and stabbing. It does not radiate to the back but it does go into his left shoul poli. The patient also notes the following associated symptoms, sweating. The patient has took aspirin and was given nitro without success for relieving factors. Current pain is rated as 10/10. Patient was ordered fentanyl prehospital but declined as his brother overdose from fentanyl. Incidentally patient also notes bilateral ear pain and fullness that started days before the chest pain. Pt denies LOC, headache, fevers, chills, visual changes, neck pain, breathing difficulties, nausea, vomiting, abdominal pain, back pain, melena, hematochezia, urinary symptoms, numbness, weakness, lymphadenopathy, rash, or other complaints. PAST MEDICAL HISTORY: See Below, hypertension PAST SURGICAL HISTORY: See Below, SOCIAL HISTORY: See Below, no alcohol HOME MEDICATIONS: See Below ALLERGIES: See Below VITALS: See Below PHYSICAL EXAMINATION: GENERAL: Awake, alert, uncomfortable l-appearing, in no distress HENT: Normocephalic, atraumatic. Oropharynx unremarkable. Middle ear effusions noted bilaterally EYES: Normal conjunctiva. Sclera non-icteric. NECK: Inspection normal. Non-tender. Supple. No nuchal rigidity. FROM. No masses. RESPIRATORY: Clear to auscultation. No wheezes. No rales. Normal respiratory effort. CARDIAC: Normal rate. Normal rhythm. No murmurs. No rubs. Extremities warm and well perfused. Pulses equal. No JVD. GI: Soft, non-distended. No tenderness to palpation. No rebound or guarding. No masses. RECTAL: Deferred. MUSCULOSKELETAL: Atraumatic. Chest examination reveals no tenderness. The back is symmetrical on inspection without obvious abnormality. There is no CVA tende rness to palpation. No joint edema. LOWER EXTREMITIES: Calves are equal size bilaterally and non-tender. No edema. No discoloration. NEURO: Normal sensorium. No sensory or motor deficits noted. SKIN: No rash or jaundice noted. Past Med/Surg History Medical History Chronic low back pain Controlled substance agreement broken Dyslipidemia HTN (hypertension) Family History Other Family history non-contributory Social History Smoking Status: Never smoker Tobacco Type: Cigarettes Cigarettes Per Day: 4 PER DAY 2 TIMES PER WEEK; Hx Alcohol Use: No Hx Substance Use: No Preferred Language: Greek Communication Ability: Effective Engagement Quality Consultant Required: No Beliefs That Will Affect Care: None marital status: Current Living Situation: Spouse Current Living Situation Comment: 2 children as well. How many Children do You have: 2 Feels Safe at Home: Yes Assistive Devices: CPAP Allergies Allergies Allergy/AdvReac Type Severity Reaction Status Date / Time iodine Allergy Severe Anaphylaxis Verified 07/05/22 18:10 ketorolac [From Toradol] AdvReac Intermediate Migraine Verified 07/05/22 18:10 Home Meds Home Medications Medication Instructions Recorded Confirmed metoprolol succinate 50 mg See Rx Instructions .Route .COMPLEX 01/06/21 07/05/22 tablet,extended release 24 hr Previous Rx's Medication Instructions Recorded ciprofloxacin 0.2 %-hydrocortisone 3 drp OTB BID #10 mL 07/06/22 1 % ear drops,suspension (Cipro HC) hydrocodone 5 mg-acetaminophen 325 1 tab PO Q8H PRN severe pain #10 07/06/22 mg tablet tabs Results & Data (ED) Vital Signs Vital Signs - 24 hr 07/05/22 17:09 07/05/22 17:12 07/05/22 17:50 Temperature 36.8 C Temperature Source Oral Pulse Rate 106 H 106 H Pulse Rate [Apical] 97 H Pulse Rate from SpO2 Sensor Pulse Rhythm Regular Pulse Strength Normal Respiratory Rate 24 25 H Respiratory Effort / Characteristics Non-Labored Non-Labored Spontaneous Grunting Respiratory Depth Normal Normal Respiratory Pattern Regular Regular Blood Pressure 147/94 H Blood Pressure [Right Arm] 156/93 H Blood Pressure Mean 111 Blood Pressure Mean [Right Arm] 114 Blood Pressure Position Lying Blood Pressure Position [Right Arm] Semi-fowlers Pulse Oximetry 95 94 Oxygen Delivery Method Room Air Room Air Sepsis Recent Fever Within 48 Hours No Sepsis New/Unexplained Change in Mental Status No Sepsis Action Taken by Nursing No Action Required 07/05/22 17:59 07/05/22 17:51 07/05/22 19:06 Temperature Temperature Source Pulse Rate 96 H Pulse Rate [Apical] 85 Pulse Rate from SpO2 Sensor 97 H Pulse Rhythm Pulse Strength Respiratory Rate 29 H 22 Respiratory Effort / Characteristics Respiratory Depth Respiratory Pattern Blood Pressure 156/93 H Blood Pressure [Right Arm] 167/94 H Blood Pressure Mean 114 Blood Pressure Mean [Right Arm] 118 Blood Pressure Position Blood Pressure Position [Right Arm] Pulse Oximetry 96 94 96 Oxygen Delivery Method Room Air Room Air Room Air Sepsis Recent Fever Within 48 Hours Sepsis New/Unexplained Change in Mental Status Sepsis Action Taken by Nursing 07/05/22 20:30 Temperature Temperature Source Pulse Rate Pulse Rate [Apical] 87 Pulse Rate from SpO2 Sensor Pulse Rhythm Pulse Strength Respiratory Rate 20 Respiratory Effort / Characteristics Respiratory Depth Respiratory Pattern Blood Pressure Blood Pressure [Right Arm] 163/101 H Blood Pressure Mean Blood Pressure Mean [Right Arm] 121 Blood Pressure Position Blood Pressure Position [Right Arm] Pulse Oximetry 97 Oxygen Delivery Method Room Air Sepsis Recent Fever Within 48 Hours Sepsis New/Unexplained Change in Mental Status Sepsis Action Taken by Nursing Laboratory Data 07/05/22 17:12 07/05/22 17:12 Lab Results 07/05/22 07/05/22 07/05/22 Range/Units 17:12 17:12 17:12 WBC 10.24 (4.8-10.8) K/ul RBC 4.19 L (4.70-6.10) M/uL Hgb 13.2 L (14.0-18.0) g/dl Hct 38.6 L (42.0-52.0) % MCV 92.1 (80.0-100.0) fL MCH 31.5 (25.0-34.0) pg MCHC 34.2 (32.0-36.0) g/dL RDW Std Deviation 42.1 (36.4-46.3) fL RDW Coeff of Christy 12.4 (11.5-14.5) % Plt Count 276 (130-400) K/uL MPV 10.2 (9.4-12.4) fL Immature Gran % (Auto) 0.4 % Neut % (Auto) 72.8 % Lymph % (Auto) 14.7 % [place] % (Auto) 8.7 % Eos % (Auto) 2.8 % Baso % (Auto) 0.6 % Neut # (Auto) 7.45 H (1.40-6.50) K/uL Lymph # (Auto) 1.51 (1.2-3.4) K/uL [place] # (Auto) 0.89 H (0.11-0.59) K/uL Eos # (Auto) 0.29 (0-0.50) K/uL Baso # (Auto) 0.06 (0-0.2) K/uL Immature Gran # (Auto) 0.04 (0.01-0.20) K/uL PT 10.3 (9.0-12.0) Seconds INR 1.0 (0.9-1.1) APTT 28.4 (21.0-31.0) Seconds PTT Ratio 1.0 D-Dimer (0-500) ug/L FEU Sodium 138 (136-145) mmol/L Potassium 3.7 (3.5-5.1) mmol/L Chloride 104 (98-107) mmol/L Carbon Dioxide 29 (21-32) mmol/L Anion Gap 5 (3-11) BUN 22 (6-23) mg/dl Creatinine 0.91 (0.6-1.4) mg/dl Est Cr Clr Drug Dosing 123.1 ml/min Est GFR ( Amer) 108.8 ml/min Est GFR (Non-Af Amer) 93.9 ml/min BUN/Creatinine Ratio 24.2 H (10-20) Glucose 102 H (70-99(Fasting)) mg/dl Calcium 9.0 (8.5-10.1) mg/dl Magnesium 1.9 (1.7-2.4) mg/dl Total Bilirubin 0.4 (0.2-1.0) mg/dl AST 15 (13-39) U/L ALT 14 (7-52) U/L Alkaline Phosphatase 86 (34-104) U/L Troponin I High Sens 7.0 (0-20) pg/ml Total Protein 7.3 (6.0-8.3) gm/dl Albumin 4.2 (3.4-5.0) gm/dl Globulin 3.1 (2.5-4.0) gm/dl Albumin/Globulin Ratio 1.4 (0.9-2) SARS-CoV-2, RNA, NAAT (NEGATIVE) 07/05/22 07/05/22 07/05/22 Range/Units 18:20 19:56 20:59 WBC (4.8-10.8) K/ul RBC (4.70-6.10) M/uL Hgb (14.0-18.0) g/dl Hct (42.0-52.0) % MCV (80.0-100.0) fL MCH (25.0-34.0) pg MCHC (32.0-36.0) g/dL RDW Std Deviation (36.4-46.3) fL RDW Coeff of Christy (11.5-14.5) % Plt Count (130-400) K/uL MPV (9.4-12.4) fL Immature Gran % (Auto) % Neut % (Auto) % Lymph % (Auto) % [place] % (Auto) % Eos % (Auto) % Baso % (Auto) % Neut # (Auto) (1.40-6.50) K/uL Lymph # (Auto) (1.2-3.4) K/uL [place] # (Auto) (0.11-0.59) K/uL Eos # (Auto) (0-0.50) K/uL Baso # (Auto) (0-0.2) K/uL Immature Gran # (Auto) (0.01-0.20) K/uL PT (9.0-12.0) Seconds INR (0.9-1.1) APTT (21.0-31.0) Seconds PTT Ratio D-Dimer 400 (0-500) ug/L FEU Sodium (136-145) mmol/L Potassium (3.5-5.1) mmol/L Chloride (98-107) mmol/L Carbon Dioxide (21-32) mmol/L Anion Gap (3-11) BUN (6-23) mg/dl Creatinine (0.6-1.4) mg/dl Est Cr Clr Drug Dosing ml/min Est GFR ( Amer) ml/min Est GFR (Non-Af Amer) ml/min BUN/Creatinine Ratio (10-20) Glucose (70-99(Fasting)) mg/dl Calcium (8.5-10.1) mg/dl Magnesium (1.7-2.4) mg/dl Total Bilirubin (0.2-1.0) mg/dl AST (13-39) U/L ALT (7-52) U/L Alkaline Phosphatase (34-104) U/L Troponin I High Sens 7.8 (0-20) pg/ml Total Protein (6.0-8.3) gm/dl Albumin (3.4-5.0) gm/dl Globulin (2.5-4.0) gm/dl Albumin/Globulin Ratio (0.9-2) SARS-CoV-2, RNA, NAAT NEGATIVE (NEGATIVE) Administered Medications Discontinued Medications Acetaminophen (Acetaminophen 325 Mg Tab) 650 mg PO Q4H PRN PRN Reason: Pain or Fever Stop: 08/04/22 22:20 Last Admin: 07/06/22 08:32 Dose: 650 mg Documented By: Admin: 07/06/22 04:37 Dose: 650 mg Documented By: ANNELISE Acetaminophen/Butalbital/Caffeine (Butalbital/Acetamin/Caffeine Tab) 2 tab PO NOW STA Stop: 07/06/22 09:06 Last Admin: 07/06/22 10:11 Dose: 2 tab Documented By: Amoxicillin/Clavulanate Potassium (Amoxicillin/Clavulanate 875 Mg Tab) 1 tab PO NOW ONE Stop: 07/05/22 21:35 Last Admin: 07/05/22 21:42 Dose: 1 tab Documented By: GIAN Aspirin (Aspirin 81 Mg Ectab) 81 mg PO [facility] Stop: 08/05/22 08:59 Last Admin: 07/06/22 08:37 Dose: 81 mg Documented By: Atorvastatin Calcium (Atorvastatin 20 Mg Tab) 20 mg PO [facility] Stop: 08/05/22 08:59 Last Admin: 07/06/22 08:37 Dose: 20 mg Documented By: Ciprofloxacin/Hydrocortisone (Cipro 0.2%/Hydrocortisone 1% Otic Susp 10 Ml Btl) 3 drops OT BID [facility] Stop: 07/12/22 21:29 Last Admin: 07/06/22 08:37 Dose: 3 drops Documented By: Admin: 07/05/22 23:09 Dose: 3 drops Documented By: CHERYL Enoxaparin Sodium (Enoxaparin Inj 40 Mg/0.4 Ml Syr) 40 mg SQ [facility] Stop: 08/05/22 08:59 Last Admin: 07/06/22 08:36 Dose: 40 mg Documented By: Hydromorphone HCl (Hydromorphone Inj 1 Mg/Ml Syringe) 1 mg IV NOW STA Stop: 07/05/22 18:19 Last Admin: 07/05/22 18:27 Dose: 1 mg Documented By: FABRICIO Hydromorphone HCl (Hydromorphone Inj 1 Mg/Ml Syringe) 1 mg IV Q15M PRN PRN Reason: Pain Stop: 07/19/22 19:40 Last Admin: 07/05/22 19:44 Dose: 1 mg Documented By: GIAN Hydromorphone HCl (Hydromorphone Inj 1 Mg/Ml Syringe) 1 mg IV NOW STA Stop: 07/06/22 01:10 Last Admin: 07/06/22 01:19 Dose: 1 mg Documented By: CHERYL Hydromorphone HCl (Hydromorphone Inj 0.5 Mg/0.5 Ml Syr) 0.5 mg IV NOW STA Stop: 07/06/22 03:01 Last Admin: 07/06/22 03:21 Dose: 0.5 mg Documented By: CHERYL Hydromorphone HCl (Hydromorphone Inj 1 Mg/Ml Syringe) 1.5 mg IV Q4H PRN PRN Reason: Pain Stop: 07/20/22 01:08 Last Admin: 07/06/22 10:09 Dose: 1.5 mg Documented By: Admin: 07/06/22 05:35 Dose: 1.5 mg Documented By: CHERYL Hydromorphone HCl (Hydromorphone Inj 1 Mg/Ml Syringe) 1 mg IV NOW STA Stop: 07/06/22 13:43 Last Admin: 07/06/22 14:54 Dose: 1 mg Documented By: Lactated Ringer's (Lr) 1,000 mls @ 50 mls/hr IV .Q20H ONE Stop: 07/06/22 17:14 Last Infusion: 07/06/22 13:45 Dose: 0 mls/hr Documented By: Admin: 07/05/22 21:33 Dose: 50 mls/hr Documented By: GIAN Lorazepam (Lorazepam 0.5 Mg Tab) 0.5 mg PO TID PRN PRN Reason: Anxiety Stop: 08/04/22 21:10 Last Admin: 07/06/22 01:44 Dose: 0.5 mg Documented By: CHERYL Losartan Potassium (Losartan Potassium 25 Mg Tab) 25 mg PO QAM [facility] Stop: 08/05/22 08:59 Last Admin: 07/06/22 08:37 Dose: 25 mg Documented By: Metoprolol Succinate (Metoprolol Succ 50mg Ext Rel Tab) 50 mg PO NOW STA Stop: 07/05/22 20:30 Last Admin: 07/05/22 20:56 Dose: 50 mg Documented By: GIAN Metoprolol Succinate (Metoprolol Succ 50mg Ext Rel Tab) 50 mg PO NOW STA Stop: 07/05/22 23:02 Last Admin: 07/05/22 23:18 Dose: 50 mg Documented By: CHIEF NURSE ANESTHETIST Metoprolol Succinate (Metoprolol Succ 50mg Ext Rel Tab) 100 mg PO BID [facility] Stop: 08/05/22 08:59 Last Admin: 07/06/22 08:37 Dose: 100 mg Documented By: Morphine Sulfate (Morphine Sulfate 4 Mg/Ml 1 Ml Carp\Vial) 4 mg IV NOW STA Stop: 07/05/22 20:55 Last Admin: 07/05/22 21:00 Dose: 4 mg Documented By: GIAN Morphine Sulfate (Morphine Sulfate 4 Mg/Ml 1 Ml Carp\Vial) 4 mg IV Q4H PRN PRN Reason: Pain Stop: 07/19/22 21:10 Last Admin: 07/05/22 23:22 Dose: 4 mg Documented By: CHERYL Nitroglycerin (Nitroglycerin Sl 0.4 Mg/Tab Tab) 0.4 mg SL Q5M PRN PRN Reason: Chest Pain Stop: 08/04/22 22:20 Last Admin: 07/05/22 22:33 Dose: 0.4 mg Documented By: CHERYL Nitroglycerin (Nitroglycerin 2% Ointment 30gm Tube) 0.5 inch EXT Q6H [facility] Stop: 08/05/22 00:29 Last Admin: 07/06/22 00:38 Dose: 0.5 inch Documented By: CHERYL Ondansetron HCl (Ondansetron Inj 2 Mg/Ml 2 Ml Vial) 4 mg IV NOW STA Stop: 07/05/22 18:19 Last Admin: 07/05/22 18:27 Dose: 4 mg Documented By: FABRICIO Oxycodone HCl (Oxycodone Hcl Ir 5 Mg Tab (Immediate Release)) 5 - 10 mg PO QID PRN PRN Reason: Pain Stop: 07/19/22 21:10 Last Admin: 07/06/22 00:06 Dose: 10 mg Documented By: CHIEF NURSE ANESTHETIST Imaging Data Radiologist's Impression: Chest X-Ray 07/05/22 19:12 XR chest 1V portable HISTORY: Atypical chest pain COMPARISON: Chest 01/24/2021. FINDINGS: There are low lung volumes. Mild interstitial thickening at the lung bases may be due to vascular crowding from the low lung volumes. Otherwise, no focal lung consolidations to suggest a pneumonia. No evidence for pulmonary edema. Prominence of the cardiac silhouette is also likely accentuated by the low lung volumes. IMPRESSION: Low lung volumes. Otherwise, no acute process within the chest. ACT 112: Negative or not required by law. Electronically signed by: Chemo Choudhary M.D. 07/05/2022 7:32 PM Discharge Plan Visit Data Chief Complaint: Chest Pain Stated Complaint: CHEST PAIN ED Provider: Rafael Bella Discharge Problem: Retrosternal chest pain Patient Disposition: Admitted As Inpatient Condition: Fair Discharge Instructions Interventions: ED Discharge Assessment Last Done: 07/05/22 22:00
[2022-07-05] MEDS ORDERED: LORazepam 0.5 MG TAB PO PRN (21:11)
[2022-07-05] MEDS ORDERED: oxyCODONE HCL IR 5 MG TAB (IMMEDIATE RELEASE) PO PRN (21:11)
[2022-07-05] MEDS ORDERED: PROMETHAZINE HCL 12.5 MG in SODIUM CHLORIDE 0.9% 50 ML IV PRN (21:11)
[2022-07-05] MEDS ORDERED: MoRPHine SULFATE 4 MG/ML 1 ML CARP\\VIAL IV PRN (21:11)
[2022-07-05] MEDS ORDERED: LACTATED RINGER'S 1,000 ML IV ONE (21:15)
[2022-07-05] MEDS ORDERED: AMOXICILLIN/CLAVULANATE 875 MG TAB PO ONE (21:34)
[2022-07-05 21:55] LABS: Magnesium 1.9 mg/dl (1.7-2.4)
[2022-07-05] MEDS ORDERED: NITROGLYCERIN SL 0.4 MG/TAB TAB SL PRN (22:21)
[2022-07-05] MEDS: CIPRO 0.2%/HYDROCORTISONE 1% OTIC SUSP 10 ML BTL OT SCH (23:09)
[2022-07-06] MEDS ORDERED: NITROGLYCERIN 2% OINTMENT 30GM TUBE EXT SCH (00:30)
[2022-07-06] MEDS ORDERED: HYDROmorphone INJ 1 MG/ML SYRINGE IV PRN (01:09)
[2022-07-06] MEDS ORDERED: HYDROmorphone INJ 1 MG/ML SYRINGE IV STA ×2 (01:09→13:42)
[2022-07-06 01:15] LABS: Partial Thromboplastin Ratio 1.1; Partial Thromboplastin Time 29.9 Seconds (21.0-31.0)
[2022-07-06] MEDS ORDERED: HYDROmorphone INJ 0.5 MG/0.5 ML SYR IV STA (03:00)
[2022-07-06] MEDS: ACETAMINOPHEN 325 MG TAB PO PRN ×2 (04:37→08:32)
[2022-07-06] MEDS: HYDROmorphone INJ 1 MG/ML SYRINGE IV PRN ×2 (05:35→10:09)
[2022-07-06 06:49] LABS: Basophils # (auto) 0.05 K/uL (0-0.2); Basophils % (auto) 0.4 %; Eosinophils % (auto) 0.8 %; Hematocrit (blood only) 37.5 % (42.0-52.0); Immature Granulocytes # (auto) 0.06 K/uL (0.01-0.20); Immature Granulocytes % (auto) 0.5 %; Lymphocytes # (auto) 0.93 K/uL (1.2-3.4); Lymphocytes % (auto) 7.2 %; Mean Corpuscular Hemoglobin 31.3 pg (25.0-34.0); Mean Corpuscular Hgb Conc 34.7 g/dL (32.0-36.0); Mean Corpuscular Volume 90.4 fL (80.0-100.0); Mean Platelet Volume 9.6 fL (9.4-12.4); Monocytes # (auto) 0.92 K/uL (0.11-0.59); Monocytes % (auto) 7.1 %; Neutrophils # (auto) 10.81 K/uL (1.40-6.50); Platelet Count 251 K/uL (130-400); RDW Coefficient of Variation 12.7 % (11.5-14.5); RDW Standard Deviation 41.5 fL (36.4-46.3); Red Blood Count 4.15 M/uL (4.70-6.10); White Blood Count 12.87 K/ul (4.8-10.8)
[2022-07-06 07:21] LABS: BUN Creatinine Ratio 20.2 (10-20); Calcium 8.7 mg/dl (8.5-10.1); Chol HDL Ratio 3.8 (0-5); Creatinine Clr Calc Pharmacy 135.3 ml/min; Est GFR (African American) 113.4 ml/min; Est GFR (Non-African American) 97.9 ml/min
[2022-07-06 08:04] LABS: Estimated Average Glucose 123 mg/dl; Hemoglobin A1C 5.9 % (4.5-5.6)
--- NOTE | 2022-07-06 08:16 | CT Scan Report ---
CT temporal bones wo con CLINICAL HISTORY: juan carlos otalgia/otorrhea TECHNIQUE: Multiaxial CT images of the temporal bones were performed and reformatted in the sagittal and coronal plane without contrast. COMPARISON STUDY: None. FINDINGS: Mild soft tissue thickening within the cartilaginous portions of the bilateral external aud itory canals. Near-complete opacification of the bilateral external auditory canals, right greater th an the left which favors cerumen. Trace right mastoid effusion. The left mastoid air cells are clear. The middle ear cavities are patent. The ossicles are intact. No evidence for inner ear dysplasia. IMPRESSION: 1. Mild soft tissue thickening within the cartilaginous portion of the bilateral external auditory ca nals. This may be chronic. A bilateral otitis externa is considered less likely but not entirely excl uded. 2. Near-complete opacification of the bilateral external auditory canals, right greater than the left which favor cerumen. Clinical correlation recommended. 3. Trace right mastoid effusion. ACT 112: Negative or not required by law. Electronically signed by: Chemo Choudhary M.D. 07/06/2022 8:15 AM
[2022-07-06] MEDS: CIPRO 0.2%/HYDROCORTISONE 1% OTIC SUSP 10 ML BTL OT SCH (08:37)
[2022-07-06] MEDS ORDERED: ENOXAPARIN INJ 40 MG/0.4 ML SYR SQ SCH (09:00)
[2022-07-06] MEDS ORDERED: ASPIRIN 81 MG ECTAB PO SCH (09:00)
[2022-07-06] MEDS ORDERED: LOSARTAN POTASSIUM 25 MG TAB PO SCH ×2 (09:00→21:00)
[2022-07-06] MEDS ORDERED: ATORVASTATIN 20 MG TAB PO SCH (09:00)
[2022-07-06] MEDS ORDERED: METOPROLOL SUCC 50MG EXT REL TAB PO SCH ×3 (09:00→21:00)
[2022-07-06] MEDS ORDERED: BUTALBITAL/ACETAMIN/CAFFEINE TAB PO STA (09:05)
--- NOTE | 2022-07-06 09:50 | Electrocardiogram Report ---
Test Reason : Blood Pressure : / mmHG Vent. Rate : 109 BPM Atrial Rate : 109 BPM P-R Int : 146 ms QRS Dur : 118 ms QT Int : 368 ms P-R-T Axes : 000 120 129 degrees QTc Int : 495 ms Arm lead reversal Sinus tachycardia Otherwise normal ECG When compared with ECG of 24-JAN-2021 19:00, No significant change Confirmed by Delano Moise ([id number]) on 07/06/2022 9:50:28 AM Referred By: REFERRED SELF Confirmed By:Delano Moise
--- NOTE | 2022-07-06 10:06 | Electrocardiogram Report ---
Test Reason : Blood Pressure : / mmHG Vent. Rate : 083 BPM Atrial Rate : 083 BPM P-R Int : 188 ms QRS Dur : 118 ms QT Int : 388 ms P-R-T Axes : 046 022 062 degrees QTc Int : 455 ms Normal sinus rhythm Non-specific intra-ventricular conduction delay Borderline ECG When compared with ECG of 05-JUL-2022 17:10, (unconfirmed) HR has decreased Confirmed by Delano Moise ([id number]) on 07/06/2022 10:06:05 AM Referred By: REFERRED SELF Confirmed By:Delano Moise
--- NOTE | 2022-07-06 10:21 | Electrocardiogram Report ---
Test Reason : Blood Pressure : / mmHG Vent. Rate : 102 BPM Atrial Rate : 102 BPM P-R Int : 186 ms QRS Dur : 114 ms QT Int : 350 ms P-R-T Axes : 056 043 065 degrees QTc Int : 456 ms Sinus tachycardia Nonspecific T wave abnormality Abnormal ECG When compared with ECG of 05-JUL-2022 22:36, (unconfirmed) No significant change was found Confirmed by Delano Moise ([id number]) on 07/06/2022 10:21:22 AM Referred By: REFERRED SELF Confirmed By:Delano Moise
--- NOTE | 2022-07-06 12:12 | Cardiology Consultation ---
Date of Consultation July 06, 2022 Assessment & Plan (1) Atypical chest pain: (2) Drug abuse and dependence: Plan At this point I do not believe any additional cardiac testing is indicated for this patient. His chest pain is certainly atypical and he has negative cardiac markers, EKG, and chest x-ray. It is possible the patient is going through narcotics withdrawal and you may want to consider a pain management consult. His blood pressure remains elevated and I will increase his losartan. History of Present Illness Attending Physician: Kathi Doyle DO History of Present Illness This is a 56-year-old male patient with a history of noncompliance with medications. He also has a history of chronic pain syndrome due to multiple surgeries on his back and knees. The patient was on a narcotic protocol but was taken off due to concerns for medication diversion. He has been off of his home medications for several months. Several days ago he develops what he describes as bilateral ear infections which caused excruciating pain, chills and fever. Starting yesterday he was awoken from sleep with what he describes as severe unrelenting chest pain which eventually brought him to the hospital. Despite having hours and hours of severe chest discomfort all his high-sensitivity troponins have been negative. EKGs are essentially normal. Chest x-ray had no acute changes. His chest pain has never really gone away. He states that they tried morphine after his hospital admission with no effect but he has felt some improvement with Dilaudid. Allergies Allergy/AdvReac Type Severity Reaction Status Date / Time iodine Allergy Severe Anaphylaxis Verified 07/05/22 18:10 ketorolac [From Toradol] AdvReac Intermediate Migraine Verified 07/05/22 18:10 Home Medications Medication Instructions Recorded Confirmed Type metoprolol succinate 50 mg See Rx Instructions .Route .COMPLEX 01/06/21 07/05/22 History tablet,extended release 24 hr Patient History Medical History Chronic low back pain Controlled substance agreement broken Dyslipidemia HTN (hypertension) Family History Other Family history non-contributory Social History Smoking Status: Never smoker Tobacco Type: Cigarettes Cigarettes Per Day: 4 PER DAY 2 TIMES PER WEEK; Hx Alcohol Use: No Hx Substance Use: No Preferred Language: Yoruba Communication Ability: Effective 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 How many Children do You have: 2 Other Information That Helps Us Care for You: No Feels Safe at Home: Yes Safety Concerns: Feels Safe At This Time Assistive Devices: CPAP Review of Systems Review of Systems: Review of Systems: See HPI for pertinent positives. All other 10 point review of systems are negative. Physical Exam Physical Exam: General: no acute distress and stated age Head: normocephalic, no masses, lesions, tenderness or abnormalities Eyes: conjunctiva are pink and non-injected, sclera clear Neck: supple, no adenopathy, no bruits, normal jugular venous pulse, no hepatojugular reflux Chest: normal shape and normal respiratory effort Lungs: clear to auscultation and percussion Cardiac Exam: - regular rate & rhythm, no murmurs gallops or rubs - normal S1, normal S2 Pulses: 2(+) throughout Abdomen: abdomen soft, non-tender, no abnormal masses and no hepatosplenomegaly Musculoskeletal: no gait disturbance, no joint inflammation, no deforming arthritis Extremities: no edema and no cyanosis Neuro: grossly normal exam Results & Data ([facility]) Vital Signs (Past 12 Hours) Vital Signs Temp Pulse Pulse Resp BP Pulse Ox O2 Del Method 07/06/22 08:07 36.9 C 87 18 169/91 H 94 Room Air 07/06/22 07:43 94 H 07/06/22 00:26 36.9 C 88 20 169/99 H 94 Room Air 07/06/22 00:09 37.3 C Laboratory Results Laboratory Results - last 24 hr 07/05/22 07/05/22 07/05/22 17:12 17:12 17:12 WBC 10.24 RBC 4.19 L Hgb 13.2 L Hct 38.6 L MCV 92.1 MCH 31.5 MCHC 34.2 RDW Std Deviation 42.1 RDW Coeff of Christy 12.4 Plt Count 276 MPV 10.2 Immature Gran % (Auto) 0.4 Neut % (Auto) 72.8 Lymph % (Auto) 14.7 Hopkins % (Auto) 8.7 Eos % (Auto) 2.8 Baso % (Auto) 0.6 Neut # (Auto) 7.45 H Lymph # (Auto) 1.51 Hopkins # (Auto) 0.89 H Eos # (Auto) 0.29 Baso # (Auto) 0.06 Immature Gran # (Auto) 0.04 PT 10.3 INR 1.0 APTT 28.4 PTT Ratio 1.0 D-Dimer Sodium 138 Potassium 3.7 Chloride 104 Carbon Dioxide 29 Anion Gap 5 BUN 22 Creatinine 0.91 Est Cr Clr Drug Dosing 123.1 Est GFR ( Amer) 108.8 Est GFR (Non-Af Amer) 93.9 BUN/Creatinine Ratio 24.2 H Glucose 102 H POC Glucose Estimat Average Glucose Hemoglobin A1c Calcium 9.0 Magnesium 1.9 Total Bilirubin 0.4 AST 15 ALT 14 Alkaline Phosphatase 86 Troponin I High Sens 7.0 Total Protein 7.3 Albumin 4.2 Globulin 3.1 Albumin/Globulin Ratio 1.4 Triglycerides Cholesterol LDL Cholesterol, Calc VLDL Cholesterol, Calc HDL Cholesterol Cholesterol/HDL Ratio SARS-CoV-2, RNA, NAAT 07/05/22 07/05/22 07/05/22 18:20 19:56 20:59 WBC RBC Hgb Hct MCV MCH MCHC RDW Std Deviation RDW Coeff of Christy Plt Count MPV Immature Gran % (Auto) Neut % (Auto) Lymph % (Auto) Hopkins % (Auto) Eos % (Auto) Baso % (Auto) Neut # (Auto) Lymph # (Auto) Hopkins # (Auto) Eos # (Auto) Baso # (Auto) Immature Gran # (Auto) PT INR APTT PTT Ratio D-Dimer 400 Sodium Potassium Chloride Carbon Dioxide Anion Gap BUN Creatinine Est Cr Clr Drug Dosing Est GFR ( Amer) Est GFR (Non-Af Amer) BUN/Creatinine Ratio Glucose POC Glucose Estimat Average Glucose Hemoglobin A1c Calcium Magnesium Total Bilirubin AST ALT Alkaline Phosphatase Troponin I High Sens 7.8 Total Protein Albumin Globulin Albumin/Globulin Ratio Triglycerides Cholesterol LDL Cholesterol, Calc VLDL Cholesterol, Calc HDL Cholesterol Cholesterol/HDL Ratio SARS-CoV-2, RNA, NAAT NEGATIVE 07/06/22 07/06/22 07/06/22 00:27 00:27 05:27 WBC RBC Hgb Hct MCV MCH MCHC RDW Std Deviation RDW Coeff of Christy Plt Count MPV Immature Gran % (Auto) Neut % (Auto) Lymph % (Auto) Hopkins % (Auto) Eos % (Auto) Baso % (Auto) Neut # (Auto) Lymph # (Auto) Hopkins # (Auto) Eos # (Auto) Baso # (Auto) Immature Gran # (Auto) PT INR APTT 29.9 PTT Ratio 1.1 D-Dimer Sodium Potassium Chloride Carbon Dioxide Anion Gap BUN Creatinine Est Cr Clr Drug Dosing Est GFR ( Amer) Est GFR (Non-Af Amer) BUN/Creatinine Ratio Glucose POC Glucose 119 H Estimat Average Glucose Hemoglobin A1c Calcium Magnesium Total Bilirubin AST ALT Alkaline Phosphatase Troponin I High Sens 8.8 Total Protein Albumin Globulin Albumin/Globulin Ratio Triglycerides Cholesterol LDL Cholesterol, Calc VLDL Cholesterol, Calc HDL Cholesterol Cholesterol/HDL Ratio SARS-CoV-2, RNA, NAAT 07/06/22 07/06/22 07/06/22 06:20 06:20 06:20 WBC 12.87 H RBC 4.15 L Hgb 13.0 L Hct 37.5 L MCV 90.4 MCH 31.3 MCHC 34.7 RDW Std Deviation 41.5 RDW Coeff of Christy 12.7 Plt Count 251 MPV 9.6 Immature Gran % (Auto) 0.5 Neut % (Auto) 84.0 Lymph % (Auto) 7.2 Hopkins % (Auto) 7.1 Eos % (Auto) 0.8 Baso % (Auto) 0.4 Neut # (Auto) 10.81 H Lymph # (Auto) 0.93 L Hopkins # (Auto) 0.92 H Eos # (Auto) 0.10 Baso # (Auto) 0.05 Immature Gran # (Auto) 0.06 PT INR APTT PTT Ratio D-Dimer Sodium 133 L Potassium 4.0 Chloride 102 Carbon Dioxide 25 Anion Gap 6 BUN 17 Creatinine 0.84 Est Cr Clr Drug Dosing 135.3 Est GFR ( Amer) 113.4 Est GFR (Non-Af Amer) 97.9 BUN/Creatinine Ratio 20.2 H Glucose 116 H POC Glucose Estimat Average Glucose Hemoglobin A1c Calcium 8.7 Magnesium Total Bilirubin AST ALT Alkaline Phosphatase Troponin I High Sens 8.8 Total Protein Albumin Globulin Albumin/Globulin Ratio Triglycerides 107 Cholesterol 199 LDL Cholesterol, Calc 126 VLDL Cholesterol, Calc 21 HDL Cholesterol 52 Cholesterol/HDL Ratio 3.8 SARS-CoV-2, RNA, NAAT 07/06/22 06:20 WBC RBC Hgb Hct MCV MCH MCHC RDW Std Deviation RDW Coeff of Christy Plt Count MPV Immature Gran % (Auto) Neut % (Auto) Lymph % (Auto) Hopkins % (Auto) Eos % (Auto) Baso % (Auto) Neut # (Auto) Lymph # (Auto) Hopkins # (Auto) Eos # (Auto) Baso # (Auto) Immature Gran # (Auto) PT INR APTT PTT Ratio D-Dimer Sodium Potassium Chloride Carbon Dioxide Anion Gap BUN Creatinine Est Cr Clr Drug Dosing Est GFR ( Amer) Est GFR (Non-Af Amer) BUN/Creatinine Ratio Glucose POC Glucose Estimat Average Glucose 123 Hemoglobin A1c 5.9 H Calcium Magnesium Total Bilirubin AST ALT Alkaline Phosphatase Troponin I High Sens Total Protein Albumin Globulin Albumin/Globulin Ratio Triglycerides Cholesterol LDL Cholesterol, Calc VLDL Cholesterol, Calc HDL Cholesterol Cholesterol/HDL Ratio SARS-CoV-2, RNA, NAAT Medications Administered Current Inpatient Medications Acetaminophen (Acetaminophen 325 Mg Tab) 650 mg PO Q4H PRN PRN Reason: Pain or Fever Stop: 08/04/22 22:20 Last Admin: 07/06/22 08:32 Dose: 650 mg Aspirin (Aspirin 81 Mg Ectab) [facility] Stop: 08/05/22 08:59 Last Admin: 07/06/22 08:37 Dose: 81 mg Atorvastatin Calcium (Atorvastatin 20 Mg Tab) 20 mg PO [facility] Stop: 08/05/22 08:59 Last Admin: 07/06/22 08:37 Dose: 20 mg Ciprofloxacin/Hydrocortisone (Cipro 0.2%/Hydrocortisone 1% Otic Susp 10 Ml Btl) 3 drops OT BID [facility] Stop: 07/12/22 21:29 Last Admin: 07/06/22 08:37 Dose: 3 drops Enoxaparin Sodium (Enoxaparin Inj 40 Mg/0.4 Ml Syr) 40 mg SQ [facility] Stop: 08/05/22 08:59 Last Admin: 07/06/22 08:36 Dose: 40 mg Hydromorphone HCl (Hydromorphone Inj 1 Mg/Ml Syringe) 1.5 mg IV Q4H PRN PRN Reason: Pain Stop: 07/20/22 01:08 Last Admin: 07/06/22 10:09 Dose: 1.5 mg Promethazine HCl 12.5 mg/ (Sodium Chloride) 50.5 mls @ 202 mls/hr IV Q6H PRN PRN Reason: Nausea And Vomiting Stop: 08/04/22 21:10 Lactated Ringer's (Lr) 1,000 mls @ 50 mls/hr IV .Q20H ONE Stop: 07/06/22 17:14 Last Admin: 07/05/22 21:33 Dose: 50 mls/hr Lorazepam (Lorazepam 0.5 Mg Tab) 0.5 mg PO TID PRN PRN Reason: Anxiety Stop: 08/04/22 21:10 Last Admin: 07/06/22 01:44 Dose: 0.5 mg Losartan Potassium (Losartan Potassium 25 Mg Tab) 25 mg PO QAM RAMANA Stop: 08/05/22 08:59 Last Admin: 07/06/22 08:37 Dose: 25 mg Metoprolol Succinate (Metoprolol Succ 50mg Ext Rel Tab) 100 mg PO BID [facility] Stop: 08/05/22 08:59 Last Admin: 07/06/22 08:37 Dose: 100 mg Nitroglycerin (Nitroglycerin Sl 0.4 Mg/Tab Tab) 0.4 mg SL Q5M PRN PRN Reason: Chest Pain Stop: 08/04/22 22:20 Last Admin: 07/05/22 22:33 Dose: 0.4 mg Oxycodone HCl (Oxycodone Hcl Ir 5 Mg Tab (Immediate Release)) 5 - 10 mg PO QID PRN PRN Reason: Pain Stop: 07/19/22 21:10 Last Admin: 07/06/22 00:06 Dose: 10 mg
--- NOTE | 2022-07-06 14:33 | Discharge Summary ---
Discharge Summary Date of Service July 06, 2022 Admission HPI Per Admitting Provider History obtained from patient, family, and records. Medical history significant for diastolic dysfunction (EF 65%, TTE 2020), hypertension, hyperlipidemia, PAM on CPAP as per records, chronic back pain status post multiple surgeries, prediabetes, NAFLD, BPH, past tobacco abuse. Last confinement December 2020 for left-sided chest pain. ACS ruled out with negative stress test. Yesterday, patient noted achy bilateral ear pain with some discharge, fever, chills. Decreased hearing. Patient uses a lot of Q-tips as per . Patient roused from sleep this afternoon with sharp left-sided chest pain going to the neck and left upper arm associated with shortness of breath and sweatiness symptoms. SBP 220s upon EMS arrival. Usual SBP 1 30-1 40s as per patient on lone beta-bunny medication. Patient unable to take losartan and amlodipine home medications the last few months due to insurance issues. Patient compliant with CPAP. Denies dietary indiscretion or unusual stress at home. Some improvement of discomfort with aspirin and nitroglycerin administration at home. Patient brought to ER for evaluation. 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 Dx & Hospital Course #1 = Principal Diagnosis (1) Left-sided chest pain: Secondary to uncontrolled BP Multifactorial : Medication noncompliance Otalgia from bilateral otitis externa Rule out ACS given patient risk factors for ischemic heart disease hx diastolic dysfunction, patient euvolemic hyperlipidemia, patient noncompliant with home statin Rx PAM on CPAP, chronic back pain, patient off narcotic Rx from PCP given concerns for drug diversion as per outpatient records prediabetes, hemoglobin A1c of 5.9 from April 2021 past tobacco abuse OBS PCU Analgesia Titrate beta-bunny, resume ARB Rx in a.m. Aspirin for CAD prevention until ACS ruled out Follow troponin TTE, Cardiology consult in a.m. RE chest pain N p.o. after midnight in anticipation of ischemic work-up Resume statin Rx Update lipid profile, hemoglobin A1c Topical Rx for bilateral otitis externa DVT prophylaxis. Lovenox subcu Full code Patient's requesting update providers. Ms. Doretha Gilliam, contact #[phone]. Text document was generated using [employer] voice recognition software. It may contain grammatical or spelling errors. Kindly contact undersigned for clarification of any documentation item in question. Updated Medication List Medication Instructions Recorded Confirmed Type metoprolol succinate 50 mg See Rx Instructions .Route .COMPLEX 01/06/21 07/05/22 History tablet,extended release 24 hr ciprofloxacin 0.2 %-hydrocortisone 3 drp OTB BID #10 mL 07/06/22 Rx 1 % ear drops,suspension (Cipro HC) hydrocodone 5 mg-acetaminophen 325 1 tab PO Q8H PRN severe pain #10 07/06/22 Rx mg tablet tabs Hospital Stay Data Consultations 07/05/22 22:21 Consult Cardiology Routine Diagnostic Imagining Performed 07/05/22 20:55 CT temporal bones wo con Urgent Pending Results Patient Have Any Pending Studies at Discharge: No Discharge Instructions Given to Patient (Per Discharging Provider) Please continue all medications as indicated on discharge list below. Please follow-up with your primary care physician within one week of discharge to evaluate your ears and workup any further symptoms. Your chest pain was not felt to be from a cardiac cause (from your heart) but may be from something else and should be investigated if it returns.
== END 2022-07-06 16:36 | disposition home or self-care (01) ==
LOC: 2S 16:56 → ED 16:56 → SUATTDRO 21:10 → 2S 22:00